=== PATIENT | male | born 1955 | race Caucasian/White ===

== ENCOUNTER 2021-04-26 11:34 | Inpatient (IN) ==
[2021-04-26] MEDS ORDERED: IOPAMIDOL 100 ML BOTTLE IV ONE (11:35)
--- NOTE | 2021-04-26 12:33 | Emergency Department Note ---
HPI <Amira Castañeda PA-C - Last Filed: 04/26/21 18:40> General Chief complaint: Cold/Flu Symptoms Stated complaint: cold symptoms Time Seen by Provider: 04/26/21 11:50 Source: other Mode of arrival: wheelchair Limitations: physical limitation History of Present Illness HPI Narrative: This a 65-year-old male who receives 24-hour care giving due to a remote traumatic brain injury who presents with at least 2 days of worsening productive cough and weakness. He now has a new oxygen requirement of 2 L. Sats dropped into the high 80s on room air. He is not on oxygen at home. He is not a smoker, and no history of asthma or COPD. Does have a history of a left lung resection. He is normally ambulatory at home but has increased needs for ADLs due to weakness. His caregiver is with him today and gives majority of his history. The patient is verbal but with limited communication. The caregiver notes not the patient has a rash to his back for the last 2 days. On exam it looks like a shingles rash. Unknown if the patient has been vaccinated for shingles. Related Data Home Medications Medication Instructions Recorded Confirmed tamsulosin 0.4 mg capsule 1 cap PO QDAY 04/26/21 04/26/21 Allergies Allergy/AdvReac Type Severity Reaction Status Date / Time Penicillins Allergy Unknown Rash Verified 04/26/21 20:25 Review of Systems <Amira Castañeda PA-C - Last Filed: 04/26/21 18:40> ROS ROS Narrative: Narrative: Limitations: ROS unobtainable due to patients medical condition [facility] <Amira Castañeda PA-C - Last Filed: 04/26/21 18:40> Narrative Patient History Narrative: Narrative: Medical/Surgical/Family History All Active Problems (Updated 04/26/21 @ 18:40 by Amira Castañeda PA-C) CAP (community acquired pneumonia) (Acute) Acute respiratory failure with hypoxia (Acute) Social History Smoking Status: Former smoker Exam <Amira Castañeda PA-C - Last Filed: 04/26/21 18:40> Narrative Narrative: General: Alert and oriented to self, mild distress, ill appearing. Pleasant and conversant. HEENT: PERRL, EOMI, normocephalic. Moist mucous membranes. Normal facies and normal dentition. Chest: Symmetric, no pain to palpation Respiratory: Lungs rhonchorous throughout with expiratory wheezes. Tachypneic to the 30s. Increased work of breathing. Heart: Regular rate and rhythm, no murmurs/clicks/rubs. Back: Shingles lesions noted near the T11-T12 dermatome x2 areas. Abdomen: Non-tender, Non distended, normal bowel tones. No organomegaly. Extremities: Warm and well perfused. No edema. DP 2+ bilaterally. No venous stasis. Neuro: No focal deficits. Cranial nerves II-XII grossly normal. Moves all fours to stimulus. Skin: Warm dry, no rashes or lesions, no cyanosis. Psych: Normal mood and affect Heme/Lymph: No abnormal bruising General Limitations: physical limitation Course <Amira Castañeda PA-C - Last Filed: 04/26/21 18:40> Course Course Narrative: 65-year-old male with traumatic brain injury and self-care deficits presents with increasing shortness of breath, cough, and weakness. Reevaluation(s) Reevaluation #1: Obtain basic labs, chest x-ray, Covid and influenza swabs Reevaluation #2: Covid and influenza swabs are negative Chest x-ray shows possible left lower lobe infiltrate consistent with a pneumonia Patient is tachypneic so will give DuoNeb treatment, 40 mg IV steroid x1 dose, and start empiric antibiotics for community-acquired pneumonia Give acyclovir for probable shingles outbreak Obtain VBG ---> 7.37, PCO2 is 53, venous PO2 is 39, bicarb is 30.6 Reevaluation #3: Given the patient's ongoing tachypnea and O2 requirements regardless of a normal white blood cell count I would still like to treat him empirically for community acquired pneumonia versus possible aspiration pneumonia and he will need ad mission. Awaiting hospitalist for signout. Additional Reevaluation(s): Hospitalist would like me to evaluate further with a CTA of the chest to rule o ut PE given his presentation and no elevation of his white blood cell count, also to better characterize his pneumonia. We also like you to repeat a VBG CT of the chest is negative for PE and shows a right lower lobe pneumonia. Repeat VBG with a CO2 of 48 and lactic acid 1.4. Vital Signs Vital signs: Vital Signs Temperature 99.2 F H 04/26/21 11:35 Temperature 98.9 F 04/27/21 04:00 Pulse Rate 73 04/27/21 07:06 Respiratory Rate 32 H 04/27/21 07:06 Blood Pressure 108/54 04/27/21 06:00 Pulse Oximetry (%) 91 04/27/21 07:06 [facility] <Amira Castañeda PA-C - Last Filed: 04/26/21 18:40> MDM Narrative Medical decision making narrative: Acute hypoxic respiratory failure Community-acquired pneumonia Shingles outbreak Patient meets criteria for admission. I have spoken the hospitalist who has accepted the patient. Lab Data Result diagrams: 04/27/21 05:38 04/27/21 05:38 Labs: Lab Results 04/26/21 04/26/21 04/26/21 Range/Units 13:40 13:40 13:40 WBC 7.3 (4.5-11.0) K/mcL RBC 4.92 (4.63-6.08) M/mcL Hgb 15.1 (13.7-17.5) g/dL Hct 50.0 (40.1-51.0) % MCV 101.6 H (80.0-100.0) fL MCH 30.7 (26.0-34.0) pg MCHC 30.2 L (31.0-36.0) g/dL RDW 13.0 (11.5-14.5) % Plt Count 177 (140-440) K/mcL MPV 10.2 (7.4-10.4) fL Seg Neutrophils % 60 (38-78) % Band Neutrophils % 1 (0-10) % Lymphocytes % 23 (15-49) % Monocytes % (Manual) 16 H (1-12) % Platelet Estimate Normal (Normal) RBC Morphology Normal (Normal) Sodium 138 (133-145) mmol/L Potassium 4.4 (3.3-5.1) mmol/L Chloride 101 (96-108) mmol/L Carbon Dioxide 27 (22-30) mmol/L Anion Gap 10.0 (8.0-16.0) BUN 16 (8-23) mg/dL Creatinine 1.1 (0.7-1.2) mg/dL GFR Calculation 70 Glucose 103 (70-105) mg/dL Calcium 8.4 L (8.6-10.4) mg/dL Total Bilirubin 0.4 (0.1-1.0) mg/dL AST 28 (<40) U/L ALT 17 (<40) U/L Alkaline Phosphatase 65 (39-117) U/L Total Protein 7.3 (5.9-8.4) gm/dL Albumin 3.8 (3.2-5.2) gm/dL Globulin 3.5 (2.2-3.7) gm/dL Albumin/Globulin Ratio 1.1 (1.0-2.3) Procalcitonin 0.10 H (<0.10) ng/mL ED POC Tests ED POC Tests: MAYI - Influenza A Negative MAYI - Influenza B Negative MAYI - SARS Antigen Negative Discharge Plan Patient/Caregiver Discharge Instructions Pt seen by [facility]ER/PA only: Yes Clinical Impression: CAP (community acquired pneumonia), Acute respiratory failure with hypoxia Patient Disposition: Xfer As Inpt ([facility]) Condition: Fair Discharge Date/Time: 04/26/21 19:35
[2021-04-26] MEDS ORDERED: methylPREDNISolone SOD SUCC 40 MG/ML VIAL IV ONE (12:50)
[2021-04-26] MEDS ORDERED: IPRATROPIUM/ALBUTEROL 3 ML AMPUL.NEB NEB ONE (12:50)
--- NOTE | 2021-04-26 13:12 | XRay Report ---
INDICATION: r/p PNa TECHNIQUE: AP portable semiupright chest x-ray COMPARISON: Previous examinations dated 04/03/2021, 02/23/2018, 03/26/2017 FINDINGS: Markedly elevated left hemidiaphragm is unchanged. Splenic flexure of the colon is just inferior to the left diaphragm There is parenchymal density at the left lung base. This may be benign volume loss but pneumonia is possible. This is essentially unchanged since 04/03/2021 but worse since 02/23/2018 There is interstitial abnormality in both upper lungs. Findings are most consistent with pulmonary congestion. There is right convex thoracic scoliosis, unchanged IMPRESSION: 1. Markedly elevated left hemidiaphragm, unchanged 2. Left basilar parenchymal density may be pneumonia or volume loss 3. Probable pulmonary congestion Interpreted and Authenticated by: Mars Cesar 04/26/21
[2021-04-26] MEDS ORDERED: cefTRIAXone 1 GM VIAL IV ONE (13:22)
[2021-04-26] MEDS ORDERED: AZITHROMYCIN 500 MG in DEXTROSE 5% IN WATER 250 ML IV ONE (13:24)
[2021-04-26 14:16] LABS: Hemoglobin 15.1 g/dL (13.7-17.5); Mean Cell Volume 101.6 fL (80.0-100.0); Mean Corpuscular HGB Conc 30.2 g/dL (31.0-36.0); Mean Platelet Volume 10.2 fL (7.4-10.4); Platelet Count 177 K/mcL (140-440); RBC 4.92 M/mcL (4.63-6.08); WBC 7.3 K/mcL (4.5-11.0)
[2021-04-26 14:36] LABS: ALT/SGPT 17 U/L (<40); AST/SGOT 28 U/L (<40); Albumin 3.8 gm/dL (3.2-5.2); Albumin/Globulin Ratio 1.1 (1.0-2.3); Alkaline Phosphatase 65 U/L (39-117); Bilirubin,Total 0.4 mg/dL (0.1-1.0); Blood Urea Nitrogen 16 mg/dL (8-23); Calcium 8.4 mg/dL (8.6-10.4); Carbon Dioxide 27 mmol/L (22-30); Chloride 101 mmol/L (96-108); Globulin 3.5 gm/dL (2.2-3.7); Glomerular Filtration Rate 70; Glucose 103 mg/dL (70-105)
[2021-04-26 15:07] LABS: Band Neutrophils % 1 % (0-10); Lymphocytes % 23 % (15-49); Monocytes % (Manual) 16 % (1-12); Platelet Estimate NORMAL (Normal); RBC Morphology NORMAL (Normal); Segmented Neutrophils % 60 % (38-78)
[2021-04-26] MEDS ORDERED: ACYCLOVIR 400 MG TABLET PO ONE (17:35)
--- NOTE | 2021-04-26 17:53 | Cat Scan Report ---
INDICATION: r/o PE COMPARISON: Previous chest x-rays dated 04/26/2021, 04/03/2021, 02/20/2021 TECHNIQUE: Axial images obtained through the chest. 60ml Isovue 370 injected intravenously, and scanning was performed during pulmonary arterial phase. Sagittally and coronally reformatted images were obtained. MIP reformatted images. FINDINGS: Poor quality examination due to inability to suspend respiration or hold still Lungs:There is marked elevation of the left hemidiaphragm. There are right lower lobe infiltrates consistent with pneumonia. There is mild left lower lobe infiltrate may represent volume loss or pneumonia. Mediastinum, vascular:Main pulmonary artery, right pulmonary artery, left pulmonary artery are negative. No intraluminal filling defects. No lobar, segmental, or subsegmental emboli. Thoracic aorta is negative. No aneurysmal dilatation No pathologic mediastinal or hilar adenopathy Heart:No cardiomegaly. No pericardial effusion. Pleura:No significant pleural effusion. No pleural mass or calcification Axilla, supraclavicular regions, chest wall:No pathologic axillary or supraclavicular adenopathy. Musculoskeletal:No thoracic compression fractures. There is exaggerated thoracic kyphosis. There is right convex thoracic scoliosis Upper Abdomen:Markedly elevated left hemidiaphragm. The gallbladder is distended. There are no calcified gallstones. There is moderate left hydronephrosis IMPRESSION: 1. Infiltrates consistent with right lower lobe pneumonia. Left lower lobe density consistent with volume loss or pneumonia 2. Negative CTA. No pulmonary embolism 3. Distended gallbladder 4. Moderate left hydronephrosis 5. Markedly elevated left hemidiaphragm The exam was performed using radiation dose optimization techniques including, but not limited to, automated exposure control, adjustment of the mA and/or kV according to patient size and use of iterative reconstruction technique. Interpreted and Authenticated by: Mars Cesar 04/26/21
--- NOTE | 2021-04-26 18:19 | Internal Med History&Physical ---
HPI History of Present Illness Patient information: Note initiated : 04/26/21 at 6:17 pm Service Date, if different from initiated Date: [] Patient: Alden Alcantar 65 y/o M admitted on for cold symptoms. Chief Complaint: [] Chief complaint: shortness of breath History of present illness: Mr. Alcantar is a 65 year old male with a history of traumatic brain injury who requires 24-hour caregiver support, prior left lung resection, probable BPH who presented to the emergency department for shortness of breath, wheezing and a cough. In the ED, the patient had a new oxygen requirement and was tachycardic. CBC did not show a leukocytosis, chemistry panel was fairly unremarkable, procalcitonin level was .10. Chest x-ray showed a left basilar parenchymal density that could be pneumonia versus volume loss. There was a markedly elevated left hemidiaphragm which was a chronic finding. The patient had a CTA chest that showed right lower lobe and probable left lower lobe opacities consistent with pneumonia. The CT scan showed an incidental finding of left hydronephrosis. There was no evidence of pulmonary embolism or other parenchymal abnormalities on the CT scan. Mayi combo rapid antigen was negative for SARS-CoV-2, influenza a and B. Patient was accompanied by a caregiver who stated that the patient's CODE STATUS is full code. The patient is unable to provide a clear history due to difficulty communicating verbally due to traumatic brain injury. Review of systems: Unable to obtain due to traumatic brain injury. Physical exam Head: Cranial scars from prior craniotomy. Eyes: normal appearance, no scleral icterus. Neck: full ROM Respiratory: respiratory rate in the mid 30s, frequent coughing. Cardiovascular: normal rate and rhythm, S1, S2. GI/Abdominal: soft, nontender, no guarding. Extremities: full range of motion, nontender. Psychiatric: normal mood. Skin: warm, normal color PFSH PFSH All Active Problems (Updated 04/26/21 @ 18:40 by Amira Castañeda PA-C) CAP (community acquired pneumonia) (Acute) Acute respiratory failure with hypoxia (Acute) MEDS/ALLERGIES Home Medications and Allergies Home Medications Medication Instructions Recorded Confirmed Type tamsulosin 0.4 mg capsule 1 cap PO QDAY 04/26/21 04/26/21 History Allergies Allergy/AdvReac Type Severity Reaction Status Date / Time Penicillins Allergy Mild Rash Verified 04/27/21 08:01 EXAM Constitutional Vitals: Temp Pulse Resp BP Pulse Ox 100.3 F H 84 32 H 117/70 92 04/26/21 17:44 04/26/21 17:18 04/26/21 17:18 04/26/21 16:31 04/26/21 17:18 DATA Data Completed and Pending Labs: Labs from last 24 hours 04/26/21 04/26/21 04/26/21 13:40 13:40 13:40 WBC 7.3 RBC 4.92 Hgb 15.1 Hct 50.0 MCV 101.6 H MCH 30.7 MCHC 30.2 L RDW 13.0 Plt Count 177 MPV 10.2 Seg Neutrophils % 60 Band Neutrophils % 1 Lymphocytes % 23 Monocytes % (Manual) 16 H Platelet Estimate Normal RBC Morphology Normal Sodium 138 Potassium 4.4 Chloride 101 Carbon Dioxide 27 Anion Gap 10.0 BUN 16 Creatinine 1.1 GFR Calculation 70 Glucose 103 Calcium 8.4 L Total Bilirubin 0.4 AST 28 ALT 17 Alkaline Phosphatase 65 Total Protein 7.3 Albumin 3.8 Globulin 3.5 Albumin/Globulin Ratio 1.1 Procalcitonin 0.10 H A/P Narrative A/P Narrative: Assessment: 65 year old male with a history of remote traumatic brain injury, left lung resection, who requires 24 hour caregiver support admitted for acute hypoxic respiratory failure and sepsis that appears to be secondary to pneumonia. The patient is probably at risk of aspiration. Procalcitonin was only mildly elevated, MAYI COMBO was negative. Lactic acid was 3.2. Hydronephrosis was incidentally noted on the CTA chest. #Acute hypoxic respiratory failure #Community acquired pneumonia #Sepsis secondary to pneumonia #Concern for aspiration #Left hydronephrosis, moderate #Possible herpes zoster #History of traumatic brain injury Plan -Ceftriaxone and Azithromycin for CAP. -Oxygen supplementation. -IV fluid for sepsis, follow lactic acid until downtrending. -Follow sputum and blood cultures. -Scheduled duo nebs and as needed albuterol nebs. -MRSA nasal PCR. -PANTHER PCR. -Urinalysis w/ reflex to culture. -Consider bilateral renal US vs CT KUB. -Bladder scan Qshift. -Acyclovir 800 mg PO 5XD x 7 days for herpes zoster. -Home medication reconciliation. -Speech consult. -PT consult. -NPO for now pending speech evaluation. -DVT prophylaxis: Lovenox -Code status: Full -Disposition: TBD Time Spent With Patient Time: Total time spent is greater than 50% in coordination of care (as documented) at patient's floor/unit and/or counseling patient:
[2021-04-26] MEDS ORDERED: ACETAMINOPHEN 325 MG TABLET PO ONE (18:22)
[2021-04-26] MEDS ORDERED: ALBUTEROL SULFATE 2.5 MG/3 ML NEBULIZER NEB PRN (19:39)
[2021-04-26] MEDS ORDERED: LACTULOSE 20 GM/30 ML ORAL.SOL PO PRN (19:48)
[2021-04-26] MEDS ORDERED: 0.9 % SODIUM CHLORIDE 1,000 ML IV ONE (19:48)
[2021-04-26] MEDS ORDERED: ACETAMINOPHEN 325 MG TABLET PO PRN (19:48)
[2021-04-26] MEDS ORDERED: ONDANSETRON 4 MG/2 ML VIAL IV PRN (19:48)
[2021-04-26] MEDS ORDERED: SENNOSIDES 1 TABLET PO PRN (19:48)
[2021-04-26] MEDS: DOCUSATE SODIUM 100 MG CAPSULE PO SCH (20:23)
[2021-04-26] MEDS: 0.9 % SODIUM CHLORIDE 10 ML SYRINGE IV SCH (20:24)
[2021-04-26] MEDS: 0.9 % SODIUM CHLORIDE 1,000 ML IV SCH (21:13)
[2021-04-26] MEDS: ACYCLOVIR 400 MG TABLET PO SCH (21:13)
[2021-04-26] MEDS: TAMSULOSIN 0.4 MG CAPSULE PO SCH (21:14)
[2021-04-26 21:52] LABS: ALT/SGPT 15 U/L (<40); AST/SGOT 19 U/L (<40); Albumin 3.6 gm/dL (3.2-5.2); Albumin/Globulin Ratio 1.2 (1.0-2.3); Alkaline Phosphatase 58 U/L (39-117); Bilirubin,Direct < 0.2 mg/dL (0-0.3); Bilirubin,Total 0.2 mg/dL (0.1-1.0); Blood Urea Nitrogen 17 mg/dL (8-23); Calcium 7.9 mg/dL (8.6-10.4); Carbon Dioxide 21 mmol/L (22-30); Chloride 103 mmol/L (96-108); Globulin 3.1 gm/dL (2.2-3.7); Glomerular Filtration Rate 79; Glucose 160 mg/dL (70-105); Lactate Dehydrogenase 206 U/L (135-225); Phosphorous 2.2 mg/dL (2.5-4.5); Triglycerides 37 mg/dL (<150); Uric Acid 4.4 mg/dL (2.5-8.0)
[2021-04-26 22:38] LABS: Appearance,Urine Clear (Clear); Bilirubin,Urine Negative (Negative); Color,Urine Yellow; Culture Indicated,Urine No; Glucose,Urine (UA) Negative (Negative); Ketones,Urine Negative (Negative); Leukocyte Esterase,Urine Negative /uL (Negative); Mucus,Urine MANY /hpf; Nitrate,Urine Negative (Negative); PH,Urine 5.5 (5.0-9.0); Specific Gravity,Urine 1.015 (1.000-1.035); Urine Blood Trace-intact ery/mcL (Negative); Urine RBC 1 /hpf (0-3); Urine Squamous Epithelial Cell 0 /hpf (0-4); Urine WBC < 1 /hpf (0-4); Urobilinogen,Urine Normal
[2021-04-27] MEDS: IPRATROPIUM/ALBUTEROL 3 ML AMPUL.NEB NEB SCH ×3 (00:46→13:19)
[2021-04-27] MEDS: 0.9 % SODIUM CHLORIDE 1,000 ML IV SCH ×4 (03:54→20:33)
[2021-04-27] MEDS: 0.9 % SODIUM CHLORIDE 10 ML SYRINGE IV SCH ×3 (04:47→22:20)
[2021-04-27 06:27] LABS: Basophils # (Auto) 0.02 K/mcL (0.00-0.30); Basophils % (Auto) 0.3 % (0.0-2.0); Eosinophils # (Auto) 0.16 K/mcL (0.00-0.70); Eosinophils % (Auto) 2.6 % (0.0-7.0); Hematocrit 44.5 % (40.1-51.0); Hemoglobin 14.1 g/dL (13.7-17.5); Lymphocytes # (Auto) 0.85 K/mcL (1.50-4.80); Lymphocytes % (Auto) 13.8 % (15.5-49.0); Mean Cell Volume 95.3 fL (80.0-100.0); Mean Corpuscular HGB Conc 31.7 g/dL (31.0-36.0); Mean Platelet Volume 10.3 fL (7.4-10.4); Monocytes % (Auto) 11.3 % (1.0-12.0); Platelet Count 168 K/mcL (140-440); RBC 4.67 M/mcL (4.63-6.08); Red Cell Distribution Width 12.6 % (11.5-14.5); WBC 6.2 K/mcL (4.5-11.0)
--- NOTE | 2021-04-27 09:40 | Cat Scan Report ---
INDICATION: Left hydronephrosis evaluate for ureteral stone. COMPARISON: Previous pulmonary CTA dated 04/26/2021 TECHNIQUE: Axial images were obtained through the abdomen and pelvis. Sagittally and coronally reformatted images. FINDINGS: Lung bases:Markedly elevated left hemidiaphragm. Right lower lobe infiltrates are unchanged and remain consistent with pneumonia. There is pulmonary parenchymal density at the left lung base which appears somewhat worse than on previous examination. This may be collapse although pneumonia is possible. Liver:Negative to the limits of noncontrast enhanced examination. Liver contour is smooth without evidence for cirrhosis Gallbladder, bilary:Gallbladder is distended and measures approximately 12 cm maximally. No calcified gallstones. No gallbladder wall thickening. Spleen:No splenomegaly Pancreas:No pancreatic mass. No peripancreatic abnormality Adrenal glands:Negative Kidneys,ureters,bladder:Negative right kidney. No hydronephrosis. No obstructing or nonobstructing calculi. No detectable mass. There is some contrast material within left renal collecting system. This is from prior chest CTA. Contrast within calyces appears somewhat effaced, probably secondary to prominent parapelvic cysts. This was felt to be more consistent with hydronephrosis on prior examination but prominent parapelvic cysts appear more likely. There are no obstructing or nonobstructing calculi Ureters are negative. No hydroureter. No ureteral calculus No bladder stone. No detectable bladder mass. Gastrointestinal:Prominent fecal material within the rectum. No detectable colonic mass. No diverticulitis Negative small bowel. No mechanical small bowel obstruction. No bowel wall thickening. No focal abnormality. Negative stomach and duodenum. No focal abnormality. Appendix: The appendix is nonvisualized. No evidence for appendicitis Vascular:There is calcification of the abdominal aorta. No abdominal aortic aneurysm Lymphatic:No retroperitoneal adenopathy. No significant mesenteric adenopathy. Mesentery, peritoneum:No free intraperitoneal fluid. No intra-abdominal abscess. No pneumoperitoneum Reproductive:Prostate is enlarged. Seminal vesicles are negative Musculoskeletal:No lumbar compression fractures. No lytic lesions. Sacrum, pelvis, hips are negative No anterior abdominal wall or inguinal hernia. IMPRESSION: 1. Findings more consistent with left parapelvic cysts than left hydronephrosis. No renal or ureteral calculi. 2. Distended gallbladder. No calcified stones. No bladder wall thickening 3. Prominent fecal material within the rectum 4. Enlarged appendix The exam was performed using radiation dose optimization techniques including, but not limited to, automated exposure control, adjustment of the mA and/or kV according to patient size and use of iterative reconstruction technique. Interpreted and Authenticated by: Mars Cesar 04/27/21
[2021-04-27] MEDS: ENOXAPARIN 40 MG/0.4 ML SYRINGE SQ SCH (09:43)
[2021-04-27] MEDS: DOCUSATE SODIUM 100 MG CAPSULE PO SCH ×2 (09:43→22:21)
[2021-04-27] MEDS: ACYCLOVIR 400 MG TABLET PO SCH ×4 (09:44→17:56)
[2021-04-27] MEDS: cefTRIAXone 1 GM VIAL IV SCH (10:01)
[2021-04-27 10:32] LABS: ALT/SGPT 12 U/L (<40); AST/SGOT 19 U/L (<40); Albumin 3.4 gm/dL (3.2-5.2); Albumin/Globulin Ratio 1.1 (1.0-2.3); Alkaline Phosphatase 54 U/L (39-117); Bilirubin,Direct < 0.2 mg/dL (0-0.3); Bilirubin,Total 0.3 mg/dL (0.1-1.0); Blood Urea Nitrogen 15 mg/dL (8-23); Calcium 7.9 mg/dL (8.6-10.4); Carbon Dioxide 23 mmol/L (22-30); Chloride 106 mmol/L (96-108); Globulin 3.2 gm/dL (2.2-3.7); Glomerular Filtration Rate 90; Glucose 112 mg/dL (70-105); Lactate Dehydrogenase 202 U/L (135-225); Phosphorous 2.3 mg/dL (2.5-4.5); Triglycerides 46 mg/dL (<150); Uric Acid 3.5 mg/dL (2.5-8.0)
[2021-04-27] MEDS: AZITHROMYCIN 500 MG in DEXTROSE 5% IN WATER 250 ML IV SCH (11:31)
[2021-04-27] MEDS ORDERED: RACEPINEPHRINE 0.5 ML AMPUL.NEB NEB ONE (14:39)
[2021-04-27] MEDS ORDERED: RACEPINEPHRINE 0.5 ML AMPUL.NEB NEB PRN (15:09)
[2021-04-27] MEDS ORDERED: FUROSEMIDE 20 MG/2 ML VIAL IV ONE ×2 (21:05→22:24)
[2021-04-27] MEDS ORDERED: 0.9 % SODIUM CHLORIDE 1,000 ML IV SCH (22:05)
[2021-04-27] MEDS: TAMSULOSIN 0.4 MG CAPSULE PO SCH (22:23)
[2021-04-27] MEDS ORDERED: IOPAMIDOL 100 ML BOTTLE IV ONE (22:43)
[2021-04-28] MEDS: IPRATROPIUM/ALBUTEROL 3 ML AMPUL.NEB NEB SCH ×5 (00:32→19:37)
[2021-04-28] MEDS: ACYCLOVIR 400 MG TABLET PO SCH ×4 (02:23→13:33)
--- NOTE | 2021-04-28 05:56 | XRay Report ---
INDICATION: increased respiratory rate TECHNIQUE: AP portable upright chest x-ray COMPARISON: Previous chest x-rays dated 04/26/2021, 04/03/2021. Previous chest CT scan dated 04/26/2021 FINDINGS:Examination was initially interpreted by [facility] Lungs:Chronic severe elevation left hemidiaphragm. There is prominent gas filled colon beneath the diaphragm. There is increasing left lung infiltrate consistent with pneumonia. Findings are worse than on previous chest x-ray. No focal right lung consolidation. Heart, vascular:No significant cardiomegaly. Pulmonary vascularity is normal. No pulmonary edema or pulmonary congestion Mediastinum, bj:Mediastinum and heart are shifted toward the right due to the elevated left hemidiaphragm. This is chronic Pleura:No definite pleural effusion Skeletal:No acute abnormality IMPRESSION: 1. Chronic severe elevation of left hemidiaphragm. 2. Left lung infiltrates are worse than on previous examination consistent with worsening pneumonia Interpreted and Authenticated by: Mars Cesar 04/28/21
--- NOTE | 2021-04-28 06:01 | Cat Scan Report ---
INDICATION: concern for upper airway stricture, hx of trach COMPARISON: Chest CT scan dated 04/26/2021 TECHNIQUE: Axial contrast enhanced images through the neck. Sagittally and coronally reformatted images. 80ml Isovue 370 injected intravenously. FINDINGS: Examination was initially interpreted by [facility] Present examination is limited. This patient has deformity with prominent tilting of the head toward the left. This patient is unable to suspend respiration. Vascular:Common carotid arteries and internal carotid arteries are patent bilaterally. Internal jugular veins are patent Lymphatic:No pathologic lymphadenopathy. Internal jugular chains are negative. No supraclavicular adenopathy Mucosa:No mucosal mass. Glottis and epiglottis are normal. Nasopharynx, oropharynx, hypopharynx are negative. No peritonsillar mass or evidence for abscess Salivary glands:Parotid glands and submandibular glands are negative bilaterally. No focal mass. No evidence for sialoadenitis. Soft Tissue:No solid or cystic soft tissue mass. No abscess. No focal abnormality Lung Apices:Increased left upper lobe consolidation consistent with worsening pneumonia Thyroid:Negative. No detectable nodule Paranasal sinuses:Air-fluid level in the right maxillary sinus consistent with acute sinusitis Musculoskeletal:Negative cervical spine. Previous right sided craniotomy IMPRESSION: 1. Increasing left upper lobe consolidation consistent with worsening pneumonia 2. Acute right maxillary sinusitis The exam was performed using radiation dose optimization techniques including, but not limited to, automated exposure control, adjustment of the mA and/or kV according to patient size and use of iterative reconstruction technique. Interpreted and Authenticated by: Mars Cesar 04/28/21
[2021-04-28] MEDS: 0.9 % SODIUM CHLORIDE 10 ML SYRINGE IV SCH ×3 (06:30→20:03)
[2021-04-28] MEDS ORDERED: IPRATROPIUM/ALBUTEROL 3 ML AMPUL.NEB NEB ONE (06:34)
[2021-04-28 06:53] LABS: Basophils # (Auto) 0.02 K/mcL (0.00-0.30); Basophils % (Auto) 0.2 % (0.0-2.0); Eosinophils # (Auto) 0 K/mcL (0.00-0.70); Eosinophils % (Auto) 0 % (0.0-7.0); Hematocrit 41.4 % (40.1-51.0); Hemoglobin 13.2 g/dL (13.7-17.5); Lymphocytes # (Auto) 1.85 K/mcL (1.50-4.80); Lymphocytes % (Auto) 21.2 % (15.5-49.0); Mean Cell Volume 95.2 fL (80.0-100.0); Mean Corpuscular HGB Conc 31.9 g/dL (31.0-36.0); Mean Platelet Volume 10.6 fL (7.4-10.4); Monocytes # (Auto) 0.75 K/mcL (0.10-0.90); Monocytes % (Auto) 8.6 % (1.0-12.0); Platelet Count 190 K/mcL (140-440); RBC 4.35 M/mcL (4.63-6.08); Red Cell Distribution Width 12.9 % (11.5-14.5); WBC 8.7 K/mcL (4.5-11.0)
[2021-04-28 07:14] LABS: ALT/SGPT 13 U/L (<40); AST/SGOT 22 U/L (<40); Albumin 3.1 gm/dL (3.2-5.2); Alkaline Phosphatase 51 U/L (39-117); Bilirubin,Direct < 0.2 mg/dL (0-0.3); Bilirubin,Total 0.2 mg/dL (0.1-1.0); Blood Urea Nitrogen 17 mg/dL (8-23); Calcium 7.7 mg/dL (8.6-10.4); Carbon Dioxide 23 mmol/L (22-30); Chloride 103 mmol/L (96-108); Glomerular Filtration Rate 79; Glucose 88 mg/dL (70-105); Lactate Dehydrogenase 250 U/L (135-225); Phosphorous 2.5 mg/dL (2.5-4.5); Triglycerides 52 mg/dL (<150); Uric Acid 3.7 mg/dL (2.5-8.0)
[2021-04-28] MEDS: DOCUSATE SODIUM 100 MG CAPSULE PO SCH ×2 (09:28→20:02)
[2021-04-28] MEDS: ENOXAPARIN 40 MG/0.4 ML SYRINGE SQ SCH (09:28)
[2021-04-28] MEDS ORDERED: FLU VACC QS2021-22(6MOS UP)/PF 60 MCG/0.5 ML SYRINGE IM ONE (10:00)
[2021-04-28] MEDS ORDERED: PNEUMOCOCCAL 23-VAL P-SAC VAC 0.5 ML SYRINGE IM ONE (10:00)
[2021-04-28] MEDS: cefTRIAXone 1 GM VIAL IV SCH (10:50)
[2021-04-28] MEDS: AZITHROMYCIN 500 MG in DEXTROSE 5% IN WATER 250 ML IV SCH (11:19)
[2021-04-28] MEDS: LEVOFLOXACIN 750 MG/150 ML BAG IV SCH (12:38)
[2021-04-28] MEDS: ACETYLCYSTEINE 800 MG/4 ML VIAL NEB SCH ×3 (14:01→19:38)
--- NOTE | 2021-04-28 15:44 | Internal Med Progress Note ---
SUBJECTIVE Subjective Patient information: Note initiated : 04/28/21 at 3:42 pm Service Date, if different from initiated Date: [] Patient: Alden Alcantar 65 y/o M admitted on 04/26/21 for cold symptoms. Chief Complaint: [] Principal diagnosis: Acute hypoxic respiratory failure Interval history: Mr. Alcantar is a 65 year old male with a history of traumatic brain injury who requires 24-hour caregiver support, prior left lung resection, probable BPH who presented to the emergency department for shortness of breath, wheezing and a cough. In the ED, the patient had a new oxygen requirement and was tachycardic. CBC did not show a leukocytosis, chemistry panel was fairly unremarkable, procalcitonin level was .10. Chest x-ray showed a left basilar parenchymal density that could be pneumonia versus volume loss. There was a markedly elevated left hemidiaphragm which was a chronic finding. The patient had a CTA chest that showed right lower lobe and probable left lower lobe opacities consistent with pneumonia. The CT scan showed an incidental finding of left hydronephrosis. There was no evidence of pulmonary embolism or other parenchymal abnormalities on the CT scan. Mayi combo rapid antigen was negative for SARS-CoV-2, influenza a and B. Patient was accompanied by a caregiver who stated that the patient's CODE STATUS is full code. The patient is unable to provide a clear history due to difficulty communicating verbally due to traumatic brain injury. 04/28 Increased respiratory rate and accessory muscle use, sounds like the patient has stridor. CT neck ordered to evaluate for upper airway stricture-negative for stricture, repeat chest xray showed an interval increase in left lung infiltrates. The patient appears to have a rash on his abdomen today, switched antibiotics from Ceftriaxone and Azithromycin to Levofloxacin IV. MRSA nasal PCR negative. Procalcitonin mildly elevated. PANTHER PCR negative. No sputum sample obtained yet. Ordered Respiratory panel 1&2. Continues to have diffuse wheezi ng-started Solumedrol and continued bronchodilators. Concern for possible aspiration-made the patient NPO pending speech evaluation. Started chest physiotherapy and suctioning. ABG showed pH 7.41, pCO2 43, pO2 60 on 5L/min nasal canula oxygen. Physical exam Head: Cranial scars from prior craniotomy. Eyes: normal appearance, no scleral icterus. Neck: full ROM Respiratory: prior tracheostomy, increased respiratory rate, accessory muscle use, wheezing, frequent coughing. Cardiovascular: normal rate and rhythm, S1, S2. GI/Abdominal: soft, nontender, no guarding. Extremities: full range of motion, nontender. Psychiatric: normal mood. Skin: warm, normal color Constitutional Vitals: Vital Signs Temp Pulse Resp BP Pulse Ox 98.7 F 92 H 29 H 123/69 95 04/28/21 12:00 04/28/21 14:01 04/28/21 14:01 04/28/21 12:00 04/28/21 14:01 Period Temp Pulse Resp BP Sys/Joyce Pulse Ox Last 24 Hr 97.4 F-99.2 F 71-105 26-46 107-159/52-88 90-97 Intake and Output 04/28/21 04/28/21 04/28/21 05:59 13:59 21:59 Intake Total 490 150 Output Total 1054 100 450 Balance -1054 390 -300 Intake & Output: Intake & Output 04/28/21 04/28/21 04/28/21 05:59 13:59 21:59 Intake Total 490 150 Output Total 1054 100 450 Balance -1054 390 -300 Intake: IV 250 150 Zithromax 500 mg In Dextrose 5% 250 in Water 250 ml @ 250 mls/hr IV Q24H [facility] Rx#:[id number] Oral 240 Output: Urine Catheter Amount 150 Void Amount 900 100 450 # of times incontinent of urine 4 Other: Meal Breakfast Percent of Meal Consumed 100% Feeding Ability Total Assistance Urine Appearance Clear Clear Clear Urine Color Pale Dark Yellow Dark Yellow Urine Odor Normal OBJ DATA Labs CBC & Chem 7: 04/28/21 05:25 04/28/21 05:25 Labs: Abnormal Lab Results 04/28/21 04/28/21 04/28/21 05:25 05:25 05:25 RBC 4.35 L Hgb 13.2 L MCV MCHC MPV 10.6 H Lymph % (Auto) Lymph # (Auto) Monocytes % (Manual) Carbon Dioxide Glucose Calcium 7.7 L Phosphorus Lactate Dehydrogenase 250 H Albumin 3.1 L Procalcitonin 0.14 H Urine Protein Urine Occult Blood Urine Mucus 04/27/21 04/27/21 04/26/21 09:22 05:38 21:51 RBC Hgb MCV MCHC MPV Lymph % (Auto) 13.8 L Lymph # (Auto) 0.85 L Monocytes % (Manual) Carbon Dioxide Glucose 112 H Calcium 7.9 L Phosphorus 2.3 L Lactate Dehydrogenase Albumin Procalcitonin Urine Protein 100 mg/dl A Urine Occult Blood Trace-intact A Urine Mucus Many A 04/26/21 04/26/21 04/26/21 20:49 13:40 13:40 RBC Hgb MCV MCHC MPV Lymph % (Auto) Lymph # (Auto) Monocytes % (Manual) Carbon Dioxide 21 L Glucose 160 H Calcium 7.9 L 8.4 L Phosphorus 2.2 L Lactate Dehydrogenase Albumin Procalcitonin 0.10 H Urine Protein Urine Occult Blood Urine Mucus 04/26/21 13:40 RBC Hgb MCV 101.6 H MCHC 30.2 L MPV Lymph % (Auto) Lymph # (Auto) Monocytes % (Manual) 16 H Carbon Dioxide Glucose Calcium Phosphorus Lactate Dehydrogenase Albumin Procalcitonin Urine Protein Urine Occult Blood Urine Mucus Meds: Medications Acetaminophen (Acetaminophen 325 Mg Tablet) 650 mg PO Q6HP PRN; Protocol PRN Reason: Per Pain Protocol/Fever > 101 Acetylcysteine (Acetylcysteine 800 Mg/4 Ml Vial) 600 mg NEB QID [facility] Last Admin: 04/28/21 14:01 Dose: 600 mg Documented by: Acyclovir (Acyclovir 400 Mg Tablet) 800 mg PO 5XD [facility]; Protocol Stop: 05/03/21 19:59 Last Admin: 04/28/21 13:33 Dose: Not Given Documented by: Albuterol Sulfate (Albuterol Sulfate 2.5 Mg/3 Ml Nebulizer) 2.5 mg NEB Q2HP PRN PRN Reason: Shortness Of Breath Last Admin: 04/27/21 22:25 Dose: 2.5 mg Documented by: Albuterol/Ipratropium (Ipratropium/Albuterol 3 Ml Ampul.Neb) 3 ml NEB Q6HRT [facility] Last Admin: 04/28/21 13:15 Dose: 3 ml Documented by: Benzonatate (Benzonatate 100 Mg Capsule) 200 mg PO TIDP PRN PRN Reason: Cough Docusate Sodium (Docusate Sodium 100 Mg Capsule) 100 mg PO BID [facility] Last Admin: 04/28/21 09:28 Dose: 100 mg Documented by: Enoxaparin Sodium (Enoxaparin 40 Mg/0.4 Ml Syringe) 40 mg SQ DAILY [facility] Last Admin: 04/28/21 09:28 Dose: 40 mg Documented by: Epinephrine (Racepinephrine 0.5 Ml Ampul.Neb) 0.5 ml NEB Q6HP PRN PRN Reason: stridor Last Admin: 04/27/21 19:39 Dose: 0.5 ml Documented by: Azithromycin 500 mg/ Dextrose 250 mls @ 250 mls/hr IV Q24H [facility]; Protocol Stop: 04/29/21 09:59 Last Infusion: 04/28/21 12:39 Dose: Infused Documented by: Levofloxacin (Levaquin) 750 mg in 150 mls @ 100 mls/hr IV Q24H [facility] Last Infusion: 04/28/21 14:17 Dose: Infused Documented by: Lactulose (Lactulose 20 Gm/30 Ml Oral.Nilam) 10 gm PO DAILYP PRN PRN Reason: Constipation Methylprednisolone Sodium Succinate (Methylprednisolone Sod Succ 40 Mg/Ml Vial) 40 mg IV Q12 [facility] Ondansetron HCl (Ondansetron 4 Mg/2 Ml Vial) 4 mg IV Q4HP PRN; Protocol PRN Reason: Nausea And Vomiting Senna (Sennosides 1 Tablet) 2 tab PO HSP PRN PRN Reason: Constipation Sodium Chloride (0.9 % Sodium Chloride 10 Ml Syringe) 10 ml IV Q8 [facility] Last Admin: 04/28/21 14:10 Dose: 10 ml Documented by: Tamsulosin HCl (Tamsulosin 0.4 Mg Capsule) 0.4 mg PO HS [facility] Last Admin: 04/27/21 22:23 Dose: Not Given Documented by: A/P Narrative A/P Narrative: Assessment: 65 year old male with a history of remote traumatic brain injury, left lung resection, who requires 24 hour caregiver support admitted for acute hypoxic respiratory failure and sepsis that appears to be secondary to pneumonia however presenting atypically with normal WBC and low procalcitonin. The patient is at risk of aspiration. Procalcitonin was only mildly elevated, MAYI COMBO was negative. PANTHER negative. Initial lactic acid was 3.2, improved to.7 with IV fluid. #Acute hypoxic respiratory failure #Possible community acquired pneumonia vs viral pneumonia vs pneumonitis #Concern for aspiration #Possible herpes zoster #History of traumatic brain injury #Chronic left diaphragm elevation Plan -Levofloxacin IV for possible CAP. -Oxygen supplementation. -Chest physiotherapy, frequent suctioning. -Follow sputum culture, respiratory panel. -Solumedrol IV BID. -Scheduled duo nebs and as needed albuterol nebs. -Mucomyst nebs QID for now. -Monitor respiratory status closely. -Acyclovir 800 mg PO 5XD x 7 days for herpes zoster. -Continue home Flomax. -Speech consult. -PT consult. -NPO for now pending speech evaluation. -DVT prophylaxis: Lovenox -Code status: Full -Disposition: TBD Time Spent With Patient Time: Total time spent is greater than 50% in coordination of care (as documented) at patient's floor/unit and/or counseling patient: QUALITY VTE Deep Vein Thrombosis/Pulmonary Embolism Present on Admission: No
[2021-04-28] MEDS: BENZONATATE 100 MG CAPSULE PO PRN (16:09)
[2021-04-28] MEDS ORDERED: ACYCLOVIR SODIUM 500 MG VIAL IV SCH ×2 (16:45→21:00)
[2021-04-28] MEDS: SODIUM CHLORIDE 0.9% IV SCH (18:03)
[2021-04-28] MEDS: ACYCLOVIR SODIUM IV SCH (18:03)
[2021-04-28] MEDS: methylPREDNISolone SOD SUCC 40 MG/ML VIAL IV SCH (20:02)
[2021-04-28] MEDS: TAMSULOSIN 0.4 MG CAPSULE PO SCH (20:02)
[2021-04-29] MEDS: ACETYLCYSTEINE 800 MG/4 ML VIAL NEB SCH ×4 (01:25→19:48)
[2021-04-29] MEDS: IPRATROPIUM/ALBUTEROL 3 ML AMPUL.NEB NEB SCH ×4 (01:25→19:48)
[2021-04-29] MEDS: SODIUM CHLORIDE 0.9% IV SCH ×2 (01:39→07:44)
[2021-04-29] MEDS: ACYCLOVIR SODIUM IV SCH ×2 (01:39→07:44)
[2021-04-29 07:16] LABS: Basophils # (Auto) 0 K/mcL (0.00-0.30); Basophils % (Auto) 0 % (0.0-2.0); Eosinophils # (Auto) 0 K/mcL (0.00-0.70); Eosinophils % (Auto) 0 % (0.0-7.0); Hematocrit 41.2 % (40.1-51.0); Hemoglobin 13.6 g/dL (13.7-17.5); Lymphocytes # (Auto) 0.47 K/mcL (1.50-4.80); Lymphocytes % (Auto) 8.2 % (15.5-49.0); Mean Cell Volume 92.8 fL (80.0-100.0); Mean Platelet Volume 10.7 fL (7.4-10.4); Monocytes # (Auto) 0.14 K/mcL (0.10-0.90); Monocytes % (Auto) 2.4 % (1.0-12.0); Neutrophils % (Auto) 89.4 % (38.0-78.0); Platelet Count 187 K/mcL (140-440); RBC 4.44 M/mcL (4.63-6.08); Red Cell Distribution Width 12.4 % (11.5-14.5); WBC 5.7 K/mcL (4.5-11.0)
[2021-04-29] MEDS: 0.9 % SODIUM CHLORIDE 10 ML SYRINGE IV SCH ×3 (07:45→22:49)
[2021-04-29] MEDS: DOCUSATE SODIUM 100 MG CAPSULE PO SCH ×2 (08:59→19:55)
[2021-04-29] MEDS ORDERED: TAMSULOSIN 0.4 MG CAPSULE PO SCH (09:00)
[2021-04-29] MEDS: methylPREDNISolone SOD SUCC 40 MG/ML VIAL IV SCH ×2 (09:03→22:48)
[2021-04-29] MEDS: ENOXAPARIN 40 MG/0.4 ML SYRINGE SQ SCH (09:03)
[2021-04-29] MEDS: LEVOFLOXACIN 750 MG/150 ML BAG IV SCH (10:54)
--- NOTE | 2021-04-29 11:42 | Internal Med Progress Note ---
SUBJECTIVE Subjective Patient information: Note initiated : 04/29/21 at 11:40 am Service Date, if different from initiated Date: [] Patient: Alden Alcantar 65 y/o M admitted on 04/26/21 for cold symptoms. Chief Complaint: [] Principal diagnosis: Acute hypoxic respiratory failure Interval history: Mr. Alcantar is a 65 year old male with a history of traumatic brain injury who requires 24-hour caregiver support, prior left lung resection, probable BPH who presented to the emergency department for shortness of breath, wheezing and a cough. In the ED, the patient had a new oxygen requirement and was tachycardic. CBC did not show a leukocytosis, chemistry panel was fairly unremarkable, procalcitonin level was .10. Chest x-ray showed a left basilar parenchymal density that could be pneumonia versus volume loss. There was a markedly elevated left hemidiaphragm which was a chronic finding. The patient had a CTA chest that showed right lower lobe and probable left lower lobe opacities consistent with pneumonia. The CT scan showed an incidental finding of left hydronephrosis. There was no evidence of pulmonary embolism or other parenchymal abnormalities on the CT scan. Mayi combo rapid antigen was negative for SARS-CoV-2, influenza a and B. Patient was accompanied by a caregiver who stated that the patient's CODE STATUS is full code. The patient is unable to provide a clear history due to difficulty communicating verbally due to traumatic brain injury. 04/28 Increased respiratory rate and accessory muscle use, sounds like the patient has stridor. CT neck ordered to evaluate for upper airway stricture-negative for stricture, repeat chest xray showed an interval increase in left lung infiltrates. The patient appears to have a rash on his abdomen today, switched antibiotics from Ceftriaxone and Azithromycin to Levofloxacin IV. MRSA nasal PCR negative. Procalcitonin mildly elevated. PANTHER PCR negative. No sputum sample obtained yet. Ordered Respiratory panel 1&2. Continues to have diffuse wheez ing-started Solumedrol and continued bronchodilators. Concern for possible aspiration-made the patient NPO pending speech evaluation. Started chest physiotherapy and suctioning. ABG showed pH 7.41, pCO2 43, pO2 60 on 5L/min nasal canula oxygen. 04/29 Respiratory panel positive for human metapneumovirus, suspect this is the a contributing cause of the patient's respiratory illness. Continue empiric levofloxacin for 5 days. On 8 L/min nasal cannula oxygen however appears to be breathing more comfortably today. Physical exam Head: Cranial scars from prior craniotomy. Eyes: normal appearance, no scleral icterus. Neck: full ROM Respiratory: prior tracheostomy, increased respiratory rate, accessory muscle use, wheezing, frequent coughing. Cardiovascular: normal rate and rhythm, S1, S2. GI/Abdominal: soft, nontender, no guarding. Extremities: full range of motion, nontender. Psychiatric: normal mood. Skin: warm, normal color Constitutional Vitals: Vital Signs Temp Pulse Resp BP Pulse Ox 98.1 F 75 27 H 143/86 91 04/29/21 08:01 04/29/21 10:04 04/29/21 10:04 04/29/21 10:02 04/29/21 10:04 Period Temp Pulse Resp BP Sys/Joyce Pulse Ox Last 24 Hr 98.1 F-98.7 F 70-93 24-44 92-143/59-86 89-98 Intake and Output 04/28/21 04/29/21 04/29/21 21:59 05:59 13:59 Intake Total 400 250 250 Output Total 525 527 150 Balance -125 -277 100 Weight 92.125 kg Intake & Output: Intake & Output 04/28/21 04/29/21 04/29/21 21:59 05:59 13:59 Intake Total 400 250 250 Output Total 525 527 150 Balance -125 -277 100 Weight 92.125 kg Intake: IV 400 250 250 Zovirax 940 mg In Sodium 250 250 250 Chloride 0.9% 250 ml @ 250 mls/ hr IV Q8H [facility] Rx#:[id number] Oral 0 Output: Void Amount 525 525 150 # of times incontinent of urine 2 Other: Urine Appearance Clear Clear Clear Urine Color Dark Yellow Bright Yellow Bright Yellow Urine Odor Normal Normal Normal OBJ DATA Labs CBC & Chem 7: 04/29/21 05:53 04/28/21 05:25 Labs: Abnormal Lab Results 04/29/21 04/28/21 04/28/21 05:53 05:25 05:25 RBC 4.44 L Hgb 13.6 L MCV MCHC MPV 10.7 H Neut % (Auto) 89.4 H Lymph % (Auto) 8.2 L Lymph # (Auto) 0.47 L Monocytes % (Manual) Carbon Dioxide Glucose Calcium 7.7 L Phosphorus Lactate Dehydrogenase 250 H Albumin 3.1 L Procalcitonin 0.14 H Urine Protein Urine Occult Blood Urine Mucus 04/28/21 04/27/21 04/27/21 05:25 09:22 05:38 RBC 4.35 L Hgb 13.2 L MCV MCHC MPV 10.6 H Neut % (Auto) Lymph % (Auto) 13.8 L Lymph # (Auto) 0.85 L Monocytes % (Manual) Carbon Dioxide Glucose 112 H Calcium 7.9 L Phosphorus 2.3 L Lactate Dehydrogenase Albumin Procalcitonin Urine Protein Urine Occult Blood Urine Mucus 04/26/21 04/26/21 04/26/21 21:51 20:49 13:40 RBC Hgb MCV MCHC MPV Neut % (Auto) Lymph % (Auto) Lymph # (Auto) Monocytes % (Manual) Carbon Dioxide 21 L Glucose 160 H Calcium 7.9 L Phosphorus 2.2 L Lactate Dehydrogenase Albumin Procalcitonin 0.10 H Urine Protein 100 mg/dl A Urine Occult Blood Trace-intact A Urine Mucus Many A 04/26/21 04/26/21 13:40 13:40 RBC Hgb MCV 101.6 H MCHC 30.2 L MPV Neut % (Auto) Lymph % (Auto) Lymph # (Auto) Monocytes % (Manual) 16 H Carbon Dioxide Glucose Calcium 8.4 L Phosphorus Lactate Dehydrogenase Albumin Procalcitonin Urine Protein Urine Occult Blood Urine Mucus Meds: Medications Acetaminophen (Acetaminophen 325 Mg Tablet) 650 mg PO Q6HP PRN; Protocol PRN Reason: Per Pain Protocol/Fever > 101 Acetylcysteine (Acetylcysteine 800 Mg/4 Ml Vial) 600 mg NEB Q6 [facility] Last Admin: 04/29/21 07:16 Dose: 600 mg Documented by: Albuterol Sulfate (Albuterol Sulfate 2.5 Mg/3 Ml Nebulizer) 2.5 mg NEB Q2HP PRN PRN Reason: Shortness Of Breath Last Admin: 04/27/21 22:25 Dose: 2.5 mg Documented by: Albuterol/Ipratropium (Ipratropium/Albuterol 3 Ml Ampul.Neb) 3 ml NEB Q6HRT [facility] Last Admin: 04/29/21 07:16 Dose: 3 ml Documented by: Benzonatate (Benzonatate 100 Mg Capsule) 200 mg PO TIDP PRN PRN Reason: Cough Last Admin: 04/28/21 16:09 Dose: 200 mg Documented by: Docusate Sodium (Docusate Sodium 100 Mg Capsule) 100 mg PO BID [facility] Last Admin: 04/29/21 08:59 Dose: Not Given Documented by: Enoxaparin Sodium (Enoxaparin 40 Mg/0.4 Ml Syringe) 40 mg SQ DAILY [facility] Last Admin: 04/29/21 09:03 Dose: 40 mg Documented by: Epinephrine (Racepinephrine 0.5 Ml Ampul.Neb) 0.5 ml NEB Q6HP PRN PRN Reason: stridor Last Admin: 04/27/21 19:39 Dose: 0.5 ml Documented by: Levofloxacin (Levaquin) 750 mg in 150 mls @ 100 mls/hr IV Q24H [facility] Last Admin: 04/29/21 10:54 Dose: 100 mls/hr Documented by: Acyclovir Sodium 940 mg/ (Sodium Chloride) 250 mls @ 250 mls/hr IV Q8H [facility] Last Infusion: 04/29/21 09:31 Dose: Infused Documented by: Lactulose (Lactulose 20 Gm/30 Ml Oral.Nilam) 10 gm PO DAILYP PRN PRN Reason: Constipation Methylprednisolone Sodium Succinate (Methylprednisolone Sod Succ 40 Mg/Ml Vial) 40 mg IV Q12 [facility] Last Admin: 04/29/21 09:03 Dose: 40 mg Documented by: Ondansetron HCl (Ondansetron 4 Mg/2 Ml Vial) 4 mg IV Q4HP PRN; Protocol PRN Reason: Nausea And Vomiting Senna (Sennosides 1 Tablet) 2 tab PO HSP PRN PRN Reason: Constipation Sodium Chloride (0.9 % Sodium Chloride 10 Ml Syringe) 10 ml IV Q8 [facility] Last Admin: 04/29/21 07:45 Dose: 10 ml Documented by: Tamsulosin HCl (Tamsulosin 0.4 Mg Capsule) 0.4 mg PO HS [facility] Last Admin: 04/28/21 20:02 Dose: Not Given Documented by: A/P Narrative A/P Narrative: Assessment: 65 year old male with a history of remote traumatic brain injury, left lung resection, who requires 24 hour caregiver support admitted for acute hypoxic respiratory failure and sepsis that appears to be secondary to pneumonia however presenting atypically with normal WBC and low procalcitonin. The patient is at risk of aspiration. Procalcitonin was only mildly elevated, MAYI COMBO was negative. PANTHER negative. Initial lactic acid was 3.2, improved to.7 with IV fluid. Respiratory panel positive for Human Metapneumovirus. #Acute hypoxic respiratory failure #Human Metapneumovirus infection #Possible community acquired pneumonia #Concern for aspiration #Possible herpes zoster #History of traumatic brain injury #Chronic left diaphragm elevation Plan -Levofloxacin IV x5 days for possible CAP. -Oxygen supplementation. -Chest physiotherapy, frequent suctioning. -Follow sputum culture, respiratory panel. -Solumedrol IV BID. -Scheduled duo nebs and as needed albuterol nebs. -Mucomyst nebs QID for now. -Monitor respiratory status closely. -Acyclovir 800 mg PO 5XD x 7 days for herpes zoster. -Continue home Flomax. -Speech consult. -PT consult. -Diet per speech. -DVT prophylaxis: Lovenox -Code status: Full -Disposition: TBD Time Spent With Patient Time: Total time spent is greater than 50% in coordination of care (as documented) at patient's floor/unit and/or counseling patient: QUALITY VTE Deep Vein Thrombosis/Pulmonary Embolism Present on Admission: No
[2021-04-29 13:42] LABS: ALT/SGPT 13 U/L (<40); AST/SGOT 18 U/L (<40); Albumin 3.5 gm/dL (3.2-5.2); Albumin/Globulin Ratio 1.1 (1.0-2.3); Alkaline Phosphatase 52 U/L (39-117); Bilirubin,Direct < 0.2 mg/dL (0-0.3); Bilirubin,Total 0.3 mg/dL (0.1-1.0); Blood Urea Nitrogen 13 mg/dL (8-23); Calcium 8.2 mg/dL (8.6-10.4); Carbon Dioxide 26 mmol/L (22-30); Chloride 102 mmol/L (96-108); Globulin 3.2 gm/dL (2.2-3.7); Glomerular Filtration Rate 90; Glucose 156 mg/dL (70-105); Lactate Dehydrogenase 204 U/L (135-225); Phosphorous 1.6 mg/dL (2.5-4.5); Triglycerides 56 mg/dL (<150); Uric Acid 3.6 mg/dL (2.5-8.0)
[2021-04-29] MEDS: ACYCLOVIR 400 MG TABLET PO SCH ×3 (14:22→19:55)
[2021-04-29] MEDS ORDERED: POTASSIUM PHOSPHATE 20 MEQ in DEXTROSE 5% IN WATER 250 ML IV ONE (16:06)
[2021-04-29] MEDS: TAMSULOSIN 0.4 MG CAPSULE PO SCH (19:55)
[2021-04-30] MEDS: ACETYLCYSTEINE 800 MG/4 ML VIAL NEB SCH ×4 (00:22→19:36)
[2021-04-30] MEDS: IPRATROPIUM/ALBUTEROL 3 ML AMPUL.NEB NEB SCH ×4 (00:23→19:36)
[2021-04-30] MEDS: 0.9 % SODIUM CHLORIDE 10 ML SYRINGE IV SCH ×3 (05:41→20:48)
[2021-04-30 07:13] LABS: Basophils # (Auto) 0.01 K/mcL (0.00-0.30); Basophils % (Auto) 0.1 % (0.0-2.0); Eosinophils # (Auto) 0 K/mcL (0.00-0.70); Eosinophils % (Auto) 0 % (0.0-7.0); Hematocrit 38.4 % (40.1-51.0); Hemoglobin 12.6 g/dL (13.7-17.5); Lymphocytes # (Auto) 0.57 K/mcL (1.50-4.80); Lymphocytes % (Auto) 5.4 % (15.5-49.0); Mean Cell Volume 91.6 fL (80.0-100.0); Mean Corpuscular HGB Conc 32.8 g/dL (31.0-36.0); Mean Platelet Volume 10.4 fL (7.4-10.4); Monocytes # (Auto) 0.24 K/mcL (0.10-0.90); Monocytes % (Auto) 2.3 % (1.0-12.0); Neutrophils % (Auto) 92.2 % (38.0-78.0); Platelet Count 210 K/mcL (140-440); RBC 4.19 M/mcL (4.63-6.08); Red Cell Distribution Width 12.3 % (11.5-14.5); WBC 10.5 K/mcL (4.5-11.0)
[2021-04-30 07:32] LABS: ALT/SGPT 11 U/L (<40); AST/SGOT 14 U/L (<40); Albumin 3.1 gm/dL (3.2-5.2); Alkaline Phosphatase 50 U/L (39-117); Bilirubin,Total 0.2 mg/dL (0.1-1.0); Blood Urea Nitrogen 17 mg/dL (8-23); Calcium 8.1 mg/dL (8.6-10.4); Carbon Dioxide 25 mmol/L (22-30); Chloride 103 mmol/L (96-108); Globulin 3.1 gm/dL (2.2-3.7); Glomerular Filtration Rate 94; Glucose 148 mg/dL (70-105)
[2021-04-30] MEDS: methylPREDNISolone SOD SUCC 40 MG/ML VIAL IV SCH ×2 (09:05→20:48)
[2021-04-30] MEDS: ENOXAPARIN 40 MG/0.4 ML SYRINGE SQ SCH (09:06)
[2021-04-30] MEDS: DOCUSATE SODIUM 100 MG CAPSULE PO SCH ×2 (09:06→20:48)
[2021-04-30] MEDS: ACYCLOVIR 400 MG TABLET PO SCH (09:06)
--- NOTE | 2021-04-30 09:27 | Internal Med Progress Note ---
SUBJECTIVE Subjective Patient information: Note initiated : 04/30/21 at 9:20 am Service Date, if different from initiated Date: [] Patient: Alden Alcantar 65 y/o M admitted on 04/26/21 for cold symptoms. Chief Complaint: Acute hypoxic respiratory failure Principal diagnosis: Acute hypoxic respiratory failure Interval history: Mr. Alcantar is a 65 year old male with a history of traumatic brain injury who requires 24-hour caregiver support, prior left lung resection, probable BPH who presented to the emergency department for shortness of breath, wheezing and a cough. In the ED, the patient had a new oxygen requirement and was tachycardic. CBC did not show a leukocytosis, chemistry panel was fairly unremarkable, procalcitonin level was .10. Chest x-ray showed a left basilar parenchymal density that could be pneumonia versus volume loss. There was a markedly elevated left hemidiaphragm which was a chronic finding. The patient had a CTA chest that showed right lower lobe and probable left lower lobe opacities consistent with pneumonia. The CT scan showed an incidental finding of left hydronephrosis. There was no evidence of pulmonary embolism or other parenchymal abnormalities on the CT scan. Aretha combo rapid antigen was negative for SARS-CoV-2, influenza a and B. Patient was accompanied by a caregiver who stated that the patient's CODE STATUS is full code. The patient is unable to provide a clear history due to difficulty communicating verbally due to traumatic brain injury. 04/28 Increased respiratory rate and accessory muscle use, sounds like the patient has stridor. CT neck ordered to evaluate for upper airway stricture-negative for stricture, repeat chest xray showed an interval increase in left lung infiltrates. The patient appears to have a rash on his abdomen today, switched antibiotics from Ceftriaxone and Azithromycin to Levofloxacin IV. MRSA nasal PCR negative. Procalcitonin mildly elevated. PANTHER PCR negative. No sputum sample obtained yet. Ordered Respiratory panel 1&2. Continues to have diffuse wheezing-started Solumedrol and continued bronchodilators. Concern for possible aspiration-made the patient NPO pending speech evaluation. Started chest physiotherapy and suctioning. ABG showed pH 7.41, pCO2 43, pO2 60 on 5L/min nasal canula oxygen. 04/29 Respiratory panel positive for human metapneumovirus, suspect this is the a contributing cause of the patient's respiratory illness. Continue empiric levofloxacin for 5 days. On 8 L/min nasal cannula oxygen however appears to be breathing more comfortably today. 04/30: Afebrile overnight. Still on 8L/min oxygen. Sputum cultures no growth to date. Denies any pain of his right flank. Denies SOB. Denies cough or wheezing. Denies chest pain. Denies fever, chills, or sweating. d/c Acyclovir. Continue IV Levaquin. On Level 5 dysphagia diet. MBSS today. Constitutional Vitals: Vital Signs Temp Pulse Resp BP Pulse Ox 36.5 C 88 25 H 135/76 94 04/30/21 08:01 04/30/21 09:05 04/30/21 09:05 04/30/21 08:01 04/30/21 09:05 Period Temp Pulse Resp BP Sys/Joyce Pulse Ox Last 24 Hr 36.2 C-37.2 C 52-97 21-34 108-143/61-99 81-100 Intake and Output 04/29/21 04/30/21 04/30/21 21:59 05:59 13:59 Intake Total 404.5455 Output Total 395 121 Balance 9.5455 -121 Weight 92.714 kg Intake & Output: Intake & Output 04/29/21 04/30/21 04/30/21 21:59 05:59 13:59 Intake Total 404.5455 Output Total 395 121 Balance 9.5455 -121 Weight 92.714 kg Intake: IV 404.5455 Potassium Phosphate 20 Meq In 254.5455 Dextrose 5% in Water 250 ml @ 127.273 mls/hr IV ONCE ONE Rx#: [id number] Output: Void Amount 395 120 # of times incontinent of urine 1 Other: Urine Appearance Clear Clear Urine Color Straw Straw Urine Odor Normal Stool Size Large Stool Color Brown Stool Consistency Formed # Bowel Movements 1 General appearance: disheveled Exam: on wheelchair, tremors Head Head exam: Present atraumatic and normal inspection Eye Eye exam: Present normal appearance ENT ENT exam: Present mucous membranes moist, normal exam and normal external ear exam Additional comments: Nasal cannula in place Neck Neck exam: Present normal inspection Respiratory Respiratory exam: Present decreased breath sounds Cardiovascular Cardiovascular exam: Present normal rate and rhythm GI/Abdominal GI/Abdominal exam: Present normal bowel sounds Back Exam Back exam: Present normal inspection Neurological Exam Neurological exam: Present alert and oriented X3 Additional comments: paralyzed, sitting on wheelchair, tremors Skin Skin exam: Present intact, rash and warm OBJ DATA Labs CBC & Chem 7: 04/30/21 05:54 04/30/21 05:54 Labs: Abnormal Lab Results 04/30/21 04/30/21 04/29/21 05:54 05:54 12:13 RBC 4.19 L Hgb 12.6 L Hct 38.4 L MPV Neut % (Auto) 92.2 H Lymph % (Auto) 5.4 L Lymph # (Auto) 0.57 L Absolute Neutrophils 9.69 H Glucose 148 H 156 H Calcium 8.1 L 8.2 L Phosphorus 1.6 L Lactate Dehydrogenase Albumin 3.1 L Procalcitonin 04/29/21 04/28/21 04/28/21 05:53 05:25 05:25 RBC 4.44 L Hgb 13.6 L Hct MPV 10.7 H Neut % (Auto) 89.4 H Lymph % (Auto) 8.2 L Lymph # (Auto) 0.47 L Absolute Neutrophils Glucose Calcium 7.7 L Phosphorus Lactate Dehydrogenase 250 H Albumin 3.1 L Procalcitonin 0.14 H 04/28/21 04/27/21 05:25 09:22 RBC 4.35 L Hgb 13.2 L Hct MPV 10.6 H Neut % (Auto) Lymph % (Auto) Lymph # (Auto) Absolute Neutrophils Glucose 112 H Calcium 7.9 L Phosphorus 2.3 L Lactate Dehydrogenase Albumin Procalcitonin Meds: Medications Acetaminophen (Acetaminophen 325 Mg Tablet) 650 mg PO Q6HP PRN; Protocol PRN Reason: Per Pain Protocol/Fever > 101 Acetylcysteine (Acetylcysteine 800 Mg/4 Ml Vial) 600 mg NEB Q6 [facility] Last Admin: 04/30/21 05:41 Dose: 600 mg Documented by: Albuterol Sulfate (Albuterol Sulfate 2.5 Mg/3 Ml Nebulizer) 2.5 mg NEB Q2HP PRN PRN Reason: Shortness Of Breath Last Admin: 04/27/21 22:25 Dose: 2.5 mg Documented by: Albuterol/Ipratropium (Ipratropium/Albuterol 3 Ml Ampul.Neb) 3 ml NEB Q6HRT [facility] Last Admin: 04/30/21 05:41 Dose: 3 ml Documented by: Benzonatate (Benzonatate 100 Mg Capsule) 200 mg PO TIDP PRN PRN Reason: Cough Last Admin: 04/28/21 16:09 Dose: 200 mg Documented by: Docusate Sodium (Docusate Sodium 100 Mg Capsule) 100 mg PO BID [facility] Last Admin: 04/30/21 09:06 Dose: 100 mg Documented by: Enoxaparin Sodium (Enoxaparin 40 Mg/0.4 Ml Syringe) 40 mg SQ DAILY [facility] Last Admin: 04/30/21 09:06 Dose: 40 mg Documented by: Epinephrine (Racepinephrine 0.5 Ml Ampul.Neb) 0.5 ml NEB Q6HP PRN PRN Reason: stridor Last Admin: 04/27/21 19:39 Dose: 0.5 ml Documented by: Levofloxacin (Levaquin) 750 mg in 150 mls @ 100 mls/hr IV Q24H [facility] Stop: 05/03/21 10:59 Last Infusion: 04/29/21 15:55 Dose: Infused Documented by: Lactulose (Lactulose 20 Gm/30 Ml Oral.Nilam) 10 gm PO DAILYP PRN PRN Reason: Constipation Methylprednisolone Sodium Succinate (Methylprednisolone Sod Succ 40 Mg/Ml Vial) 40 mg IV Q12 [facility] Last Admin: 04/30/21 09:05 Dose: 40 mg Documented by: Ondansetron HCl (Ondansetron 4 Mg/2 Ml Vial) 4 mg IV Q4HP PRN; Protocol PRN Reason: Nausea And Vomiting Senna (Sennosides 1 Tablet) 2 tab PO HSP PRN PRN Reason: Constipation Sodium Chloride (0.9 % Sodium Chloride 10 Ml Syringe) 10 ml IV Q8 [facility] Last Admin: 04/30/21 05:41 Dose: 10 ml Documented by: Tamsulosin HCl (Tamsulosin 0.4 Mg Capsule) 0.4 mg PO HS [facility] Last Admin: 04/29/21 19:55 Dose: 0.4 mg Documented by: A/P Assessment and plan (1) Viral pneumonia: Status: Acute (2) CAP (community acquired pneumonia): Status: Acute (3) Acute respiratory failure with hypoxia: Status: Acute (4) Dysphagia: Status: Acute Narrative A/P Narrative: Assessment and Plans: 1. Acute respiratory failure with hypoxia: DDx: viral pneumonia, community acquired pneumonia Inpatient PCU Positive for human metapneumovirus Sputum cultures no growth to date Supplemental oxygen therapy titrate to achieve spo2>=92%, currently on 8L/min IV Levaquin Solu-Medrol DuoNEB NEB Mucomyst [place]al[place] Physical therapy 2. Dysphagia: Level 5 diet MBSS today GI ppx: not currently indicated DVT ppx: Lovenox Code status: Full Prognosis: guarded Disposition: inpatient PCU Time Spent With Patient Time: Total time spent is greater than 50% in coordination of care (as documented) at patient's floor/unit and/or counseling patient: Total time spent with greater than 50% in coordination of care (as documented) at patient's floor/unit and/or counseling patient:: Greater than 35 minutes QUALITY VTE Deep Vein Thrombosis/Pulmonary Embolism Present on Admission: No
[2021-04-30] MEDS: LEVOFLOXACIN 750 MG/150 ML BAG IV SCH (09:59)
[2021-04-30] MEDS ORDERED: FLU VACC QS2021-22(6MOS UP)/PF 60 MCG/0.5 ML SYRINGE IM ONE (10:00)
--- NOTE | 2021-04-30 14:49 | XRay Report ---
CLINICAL INFORMATION: Evaluate for aspiration. TECHNIQUE: Thin and thicker quality barium also solids were administered by speech pathology while fluoroscopic monitoring of deglutition was observed. Total fluoroscopy time: 20 seconds. FINDINGS: Tongue elevation and palate depression are normal resulting in propulsion of the barium bolus into the pharynx. The nasopharyngeus closes normally. Pharyngeal stripping, cricopharyngeal opening and primary peristaltic wave initiation were unremarkable.. The epiglottis and vocal cords close normally - no evidence of descending aspiration. IMPRESSION: Negative exam Interpreted and Authenticated by: Mars Hawkins 04/30/21
[2021-04-30] MEDS: TAMSULOSIN 0.4 MG CAPSULE PO SCH (20:48)
[2021-04-30] MEDS: BENZONATATE 100 MG CAPSULE PO PRN (20:48)
[2021-05-01] MEDS: IPRATROPIUM/ALBUTEROL 3 ML AMPUL.NEB NEB SCH ×2 (00:17→07:53)
[2021-05-01] MEDS: ACETYLCYSTEINE 800 MG/4 ML VIAL NEB SCH ×2 (00:17→07:53)
[2021-05-01] MEDS: 0.9 % SODIUM CHLORIDE 10 ML SYRINGE IV SCH (06:40)
[2021-05-01 06:44] LABS: Basophils # (Auto) 0.02 K/mcL (0.00-0.30); Basophils % (Auto) 0.2 % (0.0-2.0); Eosinophils # (Auto) 0 K/mcL (0.00-0.70); Eosinophils % (Auto) 0 % (0.0-7.0); Hematocrit 40.9 % (40.1-51.0); Lymphocytes # (Auto) 0.73 K/mcL (1.50-4.80); Lymphocytes % (Auto) 6.6 % (15.5-49.0); Mean Cell Volume 96.2 fL (80.0-100.0); Mean Corpuscular HGB Conc 31.8 g/dL (31.0-36.0); Mean Platelet Volume 10.1 fL (7.4-10.4); Monocytes # (Auto) 0.43 K/mcL (0.10-0.90); Monocytes % (Auto) 3.9 % (1.0-12.0); Neutrophils % (Auto) 89.3 % (38.0-78.0); Platelet Count 220 K/mcL (140-440); RBC 4.25 M/mcL (4.63-6.08); Red Cell Distribution Width 12.7 % (11.5-14.5); WBC 11.1 K/mcL (4.5-11.0)
[2021-05-01 07:13] LABS: ALT/SGPT 17 U/L (<40); AST/SGOT 20 U/L (<40); Albumin 3.3 gm/dL (3.2-5.2); Albumin/Globulin Ratio 1.1 (1.0-2.3); Alkaline Phosphatase 49 U/L (39-117); Bilirubin,Total 0.2 mg/dL (0.1-1.0); Blood Urea Nitrogen 20 mg/dL (8-23); Calcium 8.3 mg/dL (8.6-10.4); Carbon Dioxide 25 mmol/L (22-30); Chloride 105 mmol/L (96-108); Glomerular Filtration Rate 90; Glucose 143 mg/dL (70-105)
[2021-05-01] MEDS: ENOXAPARIN 40 MG/0.4 ML SYRINGE SQ SCH (09:28)
[2021-05-01] MEDS: DOCUSATE SODIUM 100 MG CAPSULE PO SCH (09:28)
[2021-05-01] MEDS: methylPREDNISolone SOD SUCC 40 MG/ML VIAL IV SCH (09:33)
--- NOTE | 2021-05-01 10:50 | Discharge Summary ---
Discharge Provider Provider Patient information: Note initiated : 05/01/21 at 10:46 am Service Date, if different from initiated Date: [] Patient: Alden Alcantar 65 y/o M admitted on 04/26/21 for cold symptoms. Chief Complaint: [] Date of admission: 04/26/21 19:35 Discharge date: 05/01/21 Primary care physician: Maida Whiting Attending physician on admission: Garrett Reynoso Consults: 04/26/21 Consult to Physician [CONS] Stat Comment: Consulting Provider: Garrett Reynoso Reason For Exam: Physician to Consult Attending physician on discharge: Chi Qi Pui Discharge Meds Discharge Medications Home Medications tamsulosin 0.4 mg capsule 1 cap PO QDAY 04/26/21 [History Confirmed 04/26/21 Last Taken Unknown] albuterol sulfate 90 mcg/actuation aerosol inhaler 2 puff INHALATION Q6H PRN 14 Days #6.7 g 05/01/21 [Rx Last Taken Unknown] benzonatate 100 mg capsule 200 mg PO TIDP PRN #20 cap 05/01/21 [Rx Last Taken Unknown] COURSE Hospital Course Hospital course: Mr. Alcantar is a 65 year old male with a history of traumatic brain injury who requires 24-hour caregiver support, prior left lung resection, probable BPH who presented to the emergency department for shortness of breath, wheezing and a cough. In the ED, the patient had a new oxygen requirement and was tachycardic. CBC did not show a leukocytosis, chemistry panel was fairly unremarkable, procalcitonin level was .10. Chest x-ray showed a left basilar parenchymal density that could be pneumonia versus volume loss. There was a markedly elevated left hemidiaphragm which was a chronic finding. The patient had a CTA chest that showed right lower lobe and probable left lower lobe opacities consistent with pneumonia. The CT scan showed an incidental finding of left hydronephrosis. There was no evidence of pulmonary embolism or other parenchymal abnormalities on the CT scan. Aretha combo rapid antigen was neg ative for SARS-CoV-2, influenza a and B. Patient was accompanied by a caregiver who stated that the patient's CODE STATUS is full code. The patient is unable to provide a clear history due to difficulty communicating verbally due to traumatic brain injury. 04/28 Increased respiratory rate and accessory muscle use, sounds like the patient has stridor. CT neck ordered to evaluate for upper airway stricture-negative for stricture, repeat chest xray showed an interval increase in left lung infiltrates. The patient appears to have a rash on his abdomen today, switched antibiotics from Ceftriaxone and Azithromycin to Levofloxacin IV. MRSA nasal PCR negative. Procalcitonin mildly elevated. PANTHER PCR negative. No sputum sample obtained yet. Ordered Respiratory panel 1&2. Continues to have diffuse wheezing- started Solumedrol and continued bronchodilators. Concern for possible aspiration-made the patient NPO pending speech evaluation. Started chest physiotherapy and suctioning. ABG showed pH 7.41, pCO2 43, pO2 60 on 5L/min nasal canula oxygen. 04/29 Respiratory panel positive for human metapneumovirus, suspect this is the a contributing cause of the patient's respiratory illness. Continue empiric levofloxacin for 5 days. On 8 L/min nasal cannula oxygen however appears to be breathing more comfortably today. 04/30: Afebrile overnight. Still on 8L/min oxygen. Sputum cultures no growth to date. Denies any pain of his right flank. Denies SOB. Denies cough or wheezing. Denies chest pain. Denies fever, chills, or sweating. d/c Acyclovir. Continue IV Levaquin. On Level 5 dysphagia diet. MBSS today. 05/01: Passed MBSS. Tolerated regular diet. Finished a course of IV Levaquin and Solu- Medrol. Reached clinical stability. Decided to discharge home with home health physical therapy with home oxygen 2L/min. 2 week PCP appointment made for him. Rx sent to pharmacy. All questions answered prior to patient being physically discharged. Discharge diagnosis: Acute on chronic respiratory failure with hypoxia exacerbated by viral PNA Time Spent with Patient Time attestation: Total time spent providing and/or coordinating discharge services: Time spent: Greater than 30 minutes EXAM Constitutional Vitals: Temp Pulse Resp BP Pulse Ox 36.3 C 99 H 24 H 119/65 90 05/01/21 07:46 05/01/21 07:54 05/01/21 07:54 05/01/21 07:46 05/01/21 09:15 General appearance: cooperative and no acute distress Exam: On wheelchair Head Head exam: Present atraumatic and normocephalic Eye Eye exam: Present EOMI and PERRL ENT ENT exam: Present mucous membranes moist, normal exam and normal external ear exam Additional comments: Nasal cannula in place Neck Neck exam: Present normal inspection; Absent lymphadenopathy, tenderness or thyromegaly Respiratory Respiratory exam: Present decreased breath sounds; Absent accessory muscle use, respiratory distress or wheezes Cardiovascular Cardiovascular exam: Present normal rate and rhythm; Absent JVD GI/Abdominal GI/Abdominal exam: Present normal bowel sounds and soft; Absent organomegaly or tenderness Rectal Rectal exam: Present deferred Extremities Exam Extremities exam: Present full ROM, normal capillary refill and normal inspection; Absent tenderness Neurological Exam Neurological exam: Present alert, CN II-XII intact and oriented X3; Absent motor sensory deficit Psychiatric Psychiatric exam: Present normal affect and normal mood; Absent anxious or depressed Skin Skin exam: Present dry and intact Discharge Data Data Completed and Pending Labs on day of discharge: Labs from last 24 hours 05/01/21 05/01/21 05:34 05:34 WBC 11.1 H RBC 4.25 L Hgb 13.0 L Hct 40.9 MCV 96.2 MCH 30.6 MCHC 31.8 RDW 12.7 Plt Count 220 MPV 10.1 Neut % (Auto) 89.3 H Lymph % (Auto) 6.6 L [place] % (Auto) 3.9 Eos % (Auto) 0 Baso % (Auto) 0.2 Lymph # (Auto) 0.73 L [place] # (Auto) 0.43 Eos # (Auto) 0 Baso # (Auto) 0.02 Absolute Neutrophils 9.91 H Sodium 140 Potassium 4.5 Chloride 105 Carbon Dioxide 25 Anion Gap 10.0 BUN 20 Creatinine 0.9 GFR Calculation 90 Glucose 143 H Calcium 8.3 L Total Bilirubin 0.2 AST 20 ALT 17 Alkaline Phosphatase 49 Total Protein 6.3 Albumin 3.3 Globulin 3.0 Albumin/Globulin Ratio 1.1 Discharge Plan Patient/Caregiver Discharge Instructions Activity: increase activity as tolerated Diet: Regular Diet Prescriptions: New benzonatate 100 mg Capsule 200 mg PO TIDP PRN (Reason: Cough) Qty: 20 0RF albuterol sulfate 90 mcg/actuation HFA aerosol inhaler 2 puff inhalation Q6H PRN (Reason: shortness of breath or wheezing) 14 Days Qty: 6.7 1RF Continued tamsulosin 0.4 mg capsule 1 cap PO QDAY 0RF Follow Up Plan Follow up with: PCP, PCP [Other] Maida Whiting ARNP [Primary Care Provider] - Patient Disposition: Home Health Service Prognosis: Fair Rehab Potential: Good I certify that the patient requires SNF services: No Overall status at discharge: patient is progressing back to baseline Discharge Orders: Discharge Order (Routine); Ordered 05/01/21 Ordered By: Matt STEWARD VTE Deep Vein Thrombosis/Pulmonary Embolism Present on Admission: No
[2021-05-01] MEDS: LEVOFLOXACIN 750 MG/150 ML BAG IV SCH (11:17)
--- NOTE | 2021-05-02 07:59 | EKG ---
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 Measurements Intervals [place] Rate: 94 P: 75 [place]: 121 QRS: 53 QRSD: 92 T: 104 QT: 346 QTc: 433 Interpretive Statements Sinus rhythm Abnormal ST-T, consider ischemia, lateral leads Baseline artifact Electronically Signed On 05-02-2021 7:58:49 PST by Emile Kincaid D.O. /store/[email or web address]/[id number]
== END 2021-05-01 13:25 | disposition home health service (06) | DRG 871 ==
LOC: ED 11:34 → ICU 19:35 → MEDSUR 04-27 16:03 → ICU 04-27 21:25 → MEDSUR 04-30 13:59
PROVIDERS: ADMIT Internal Medicine; ATTEND Internal Medicine

== ENCOUNTER 2024-03-03 08:22 | Inpatient (IN) ==
[2024-03-03] MEDS ORDERED: IOPAMIDOL 100 ML BOTTLE IV ONE (08:23)
[2024-03-03] MEDS: KETOROLAC 15 MG/ML VIAL IV ONE (08:42)
[2024-03-03] MEDS: LACTATED RINGERS 1,000 ML IV ONE (08:42)
[2024-03-03 09:22] LABS: Basophils # (Auto) 0.02 K/mcL (0.00-0.30); Basophils % (Auto) 0.3 % (0.0-2.0); Eosinophils # (Auto) 0.01 K/mcL (0.00-0.70); Eosinophils % (Auto) 0.1 % (0.0-7.0); Hematocrit 44.5 % (40.1-51.0); Hemoglobin 13.7 g/dL (13.7-17.5); Lymphocytes # (Auto) 0.44 K/mcL (1.50-4.80); Lymphocytes % (Auto) 6.1 % (15.5-49.0); Mean Cell Volume 98.9 fL (80.0-100.0); Mean Corpuscular HGB Conc 30.8 g/dL (31.0-36.0); Mean Platelet Volume 10.2 fL (8.8-12.5); Monocytes # (Auto) 0.86 K/mcL (0.10-0.90); Neutrophils % (Auto) 81.1 % (38.0-78.0); Platelet Count 162 K/mcL (140-440); WBC 7.2 K/mcL (4.5-11.0)
[2024-03-03 09:49] LABS: ALT/SGPT 28 U/L (<40); AST/SGOT 34 U/L (<40); Albumin 3.7 gm/dL (3.2-5.2); Albumin/Globulin Ratio 1.2 (1.0-2.3); Alkaline Phosphatase 59 U/L (39-117); Bilirubin,Total 0.3 mg/dL (0.1-1.0); Blood Urea Nitrogen 18 mg/dL (8-23); Calcium 9.5 mg/dL (8.6-10.4); Carbon Dioxide 24 mmol/L (22-30); Chloride 103 mmol/L (96-108); Globulin 3.1 gm/dL (2.2-3.7); Glomerular Filtration Rate 52; Glucose 123 mg/dL (70-105); Potassium 4.2 mmol/L (3.3-5.1); Sodium 141 mmol/L (133-145)
[2024-03-03] MEDS: 0.9 % SODIUM CHLORIDE 1,000 ML IV ONE (10:21)
[2024-03-03] MEDS: OSELTAMIVIR PHOSPHATE 75 MG CAPSULE PO ONE (11:59)
[2024-03-03] MEDS: ACETAMINOPHEN 325 MG TABLET PO ONE (12:57)
[2024-03-03] MEDS ORDERED: oxyCODONE IR 5 MG TABLET PO PRN (15:12)
[2024-03-03] MEDS ORDERED: MAG HYDROX/AL HYDROX/SIMETH 30 ML ORAL.SUSP PO PRN (15:12)
[2024-03-03] MEDS ORDERED: ONDANSETRON 4 MG/2 ML VIAL IV PRN (15:12)
[2024-03-03] MEDS ORDERED: CALCIUM CARBONATE 500 MG TAB.CHEW CHEWED PRN (15:12)
[2024-03-03] MEDS ORDERED: MAGNESIUM HYDROXIDE 30 ML ORAL.SUSP PO PRN (15:12)
[2024-03-03] MEDS ORDERED: IBUPROFEN 600 MG TABLET PO PRN (15:12)
[2024-03-03] MEDS: 0.9 % SODIUM CHLORIDE 1,000 ML IV SCH (15:16)
[2024-03-03] MEDS: ALBUTEROL SULFATE 2.5 MG/3 ML NEBULIZER NEB PRN (15:37)
[2024-03-03] MEDS: guaiFENesin/CODEINE 10 ML UDC PO PRN (17:06)
[2024-03-03] MEDS: BENZONATATE 100 MG CAPSULE PO PRN (17:06)
[2024-03-03] MEDS: ACETAMINOPHEN 325 MG TABLET PO PRN (21:27)
[2024-03-03] MEDS: OSELTAMIVIR PHOSPHATE 30 MG CAPSULE PO SCH (21:28)
[2024-03-03] MEDS: MELATONIN 3 MG TABLET PO SCH (21:28)
[2024-03-03] MEDS: 0.9 % SODIUM CHLORIDE 10 ML SYRINGE IV SCH (21:28)
[2024-03-03] MEDS: TAMSULOSIN 0.4 MG CAPSULE PO SCH (21:28)
[2024-03-04 06:31] LABS: Basophils # (Auto) 0.01 K/mcL (0.00-0.30); Basophils % (Auto) 0.1 % (0.0-2.0); Eosinophils # (Auto) 0.01 K/mcL (0.00-0.70); Eosinophils % (Auto) 0.1 % (0.0-7.0); Hematocrit 41.4 % (40.1-51.0); Hemoglobin 12.7 g/dL (13.7-17.5); Lymphocytes # (Auto) 0.72 K/mcL (1.50-4.80); Lymphocytes % (Auto) 9.9 % (15.5-49.0); Mean Cell Volume 100.2 fL (80.0-100.0); Mean Corpuscular HGB Conc 30.7 g/dL (31.0-36.0); Mean Platelet Volume 10.5 fL (8.8-12.5); Monocytes # (Auto) 0.61 K/mcL (0.10-0.90); Monocytes % (Auto) 8.4 % (1.0-12.0); Neutrophils % (Auto) 81.2 % (38.0-78.0); Platelet Count 128 K/mcL (140-440); RBC 4.13 M/mcL (4.63-6.08); Red Cell Distribution Width 13.2 % (11.5-14.5); WBC 7.3 K/mcL (4.5-11.0)
[2024-03-04 06:45] LABS: Blood Urea Nitrogen 15 mg/dL (8-23); Calcium 9.1 mg/dL (8.6-10.4); Carbon Dioxide 26 mmol/L (22-30); Chloride 101 mmol/L (96-108); Glomerular Filtration Rate 92; Glucose 101 mg/dL (70-105); Potassium 4.3 mmol/L (3.3-5.1); Sodium 138 mmol/L (133-145)
[2024-03-04] MEDS: DOCUSATE SODIUM 100 MG CAPSULE PO PRN (08:37)
[2024-03-04] MEDS: ENOXAPARIN 40 MG/0.4 ML SYRINGE SQ SCH (08:37)
[2024-03-04] MEDS: SENNOSIDES 1 TABLET PO PRN (20:57)
[2024-03-04] MEDS: LORazepam 0.5 MG TABLET PO PRN (20:57)
[2024-03-07 10:17] VITALS: O2SAT 90
[2024-03-07 13:09] VITALS: TEMP 97.3
== END 2024-03-07 13:23 | disposition home or self-care (01) | DRG 189 ==
LOC: ED 08:22 → ICU 15:02
PROVIDERS: ADMIT Internal Medicine; ATTEND Internal Medicine

== ENCOUNTER 2024-03-07 18:09 | Inpatient (IN) ==
[2024-03-07] MEDS: IPRATROPIUM/ALBUTEROL 3 ML AMPUL.NEB NEB ONE (18:45)
[2024-03-07 19:14] LABS: Basophils # (Auto) 0.01 K/mcL (0.00-0.30); Basophils % (Auto) 0.3 % (0.0-2.0); Eosinophils # (Auto) 0.05 K/mcL (0.00-0.70); Eosinophils % (Auto) 1.5 % (0.0-7.0); Hematocrit 44.7 % (40.1-51.0); Hemoglobin 14.2 g/dL (13.7-17.5); Lymphocytes # (Auto) 1.13 K/mcL (1.50-4.80); Lymphocytes % (Auto) 34.6 % (15.5-49.0); Mean Cell Volume 94.9 fL (80.0-100.0); Mean Corpuscular HGB Conc 31.8 g/dL (31.0-36.0); Mean Platelet Volume 10.4 fL (8.8-12.5); Monocytes # (Auto) 0.45 K/mcL (0.10-0.90); Monocytes % (Auto) 13.8 % (1.0-12.0); Neutrophils % (Auto) 49.5 % (38.0-78.0); Platelet Count 173 K/mcL (140-440); RBC 4.71 M/mcL (4.63-6.08); Red Cell Distribution Width 12.7 % (11.5-14.5); WBC 3.3 K/mcL (4.5-11.0)
[2024-03-07 19:26] LABS: ALT/SGPT 226 U/L (<40); AST/SGOT 311 U/L (<40); Albumin 3.6 gm/dL (3.2-5.2); Albumin/Globulin Ratio 1.2 (1.0-2.3); Alkaline Phosphatase 79 U/L (39-117); Bilirubin,Total 0.5 mg/dL (0.1-1.0); Blood Urea Nitrogen 10 mg/dL (8-23); Calcium 8.5 mg/dL (8.6-10.4); Carbon Dioxide 25 mmol/L (22-30); Chloride 102 mmol/L (96-108); Globulin 3.1 gm/dL (2.2-3.7); Glomerular Filtration Rate 92; Glucose 106 mg/dL (70-105); Sodium 137 mmol/L (133-145)
[2024-03-07] MEDS ORDERED: ONDANSETRON 4 MG/2 ML VIAL IV PRN (20:47)
[2024-03-07] MEDS ORDERED: traZODone HCL 50 MG TABLET PO PRN (20:47)
[2024-03-07] MEDS: SENNOSIDES 1 TABLET PO SCH (21:27)
[2024-03-07] MEDS: DOCUSATE SODIUM 100 MG CAPSULE PO SCH (21:27)
[2024-03-07] MEDS: 0.9 % SODIUM CHLORIDE 10 ML SYRINGE IV SCH (21:31)
[2024-03-08] MEDS: ENOXAPARIN 40 MG/0.4 ML SYRINGE SQ SCH (08:09)
[2024-03-08] MEDS: IPRATROPIUM/ALBUTEROL 3 ML AMPUL.NEB NEB PRN (08:42)
[2024-03-08] MEDS: guaiFENesin 600 MG TAB.SR.12H PO SCH (10:56)
[2024-03-09] MEDS: ACETAMINOPHEN 325 MG TABLET PO PRN (10:10)
[2024-03-10 14:39] VITALS: TEMP 98.8; O2SAT 95
== END 2024-03-10 13:00 | disposition home or self-care (01) | DRG 189 ==
LOC: ED 18:09 → MEDSUR 18:09
PROVIDERS: ADMIT Internal Medicine; ATTEND Internal Medicine

== ENCOUNTER 2025-02-25 13:38 | Inpatient (IN) ==
[2025-02-25] MEDS ORDERED: IOPAMIDOL 100 ML BOTTLE IV ONE (13:39)
[2025-02-25] MEDS: 0.9 % SODIUM CHLORIDE 1,000 ML IV ONE (13:54)
[2025-02-25] MEDS: IPRATROPIUM/ALBUTEROL 3 ML AMPUL.NEB NEB ONE (14:03)
[2025-02-25 14:25] LABS: Basophils # (Auto) 0.03 K/mcL (0.00-0.30); Basophils % (Auto) 0.3 % (0.0-2.0); Eosinophils # (Auto) 0.13 K/mcL (0.00-0.70); Eosinophils % (Auto) 1.4 % (0.0-7.0); Hematocrit 44.7 % (40.1-51.0); Hemoglobin 14.3 g/dL (13.7-17.5); Lymphocytes # (Auto) 1.50 K/mcL (1.50-4.80); Lymphocytes % (Auto) 15.9 % (15.5-49.0); Mean Corpuscular HGB Conc 32.0 g/dL (31.0-36.0); Monocytes # (Auto) 1.23 K/mcL (0.10-0.90); Monocytes % (Auto) 13.0 % (1.0-12.0); Neutrophils % (Auto) 69.2 % (38.0-78.0); Platelet Count 124 K/mcL (140-440); RBC 4.63 M/mcL (4.63-6.08); WBC 9.4 K/mcL (4.5-11.0)
[2025-02-25 14:32] LABS: INR 1.0 (0.9-1.1); Prothrombin Time 14.2 sec (11.9-14.5)
[2025-02-25] MEDS: LEVOFLOXACIN 750 MG/150 ML BAG IV ONE (14:33)
[2025-02-25 14:48] LABS: ALT/SGPT 8 U/L (<40); AST/SGOT 15 U/L (<40); Albumin 3.5 gm/dL (3.2-5.2); Albumin/Globulin Ratio 1.3 (1.0-2.3); Alkaline Phosphatase 58 U/L (39-117); Anion Gap 11.0 (8.0-16.0); Bilirubin,Total 0.4 mg/dL (0.1-1.0); Blood Urea Nitrogen 17 mg/dL (8-23); Calcium 8.8 mg/dL (8.6-10.4); Carbon Dioxide 26 mmol/L (22-30); Chloride 103 mmol/L (96-108); Globulin 2.8 gm/dL (2.2-3.7); Glucose 115 mg/dL (70-105); Potassium 4.2 mmol/L (3.3-5.1); Sodium 140 mmol/L (133-145)
[2025-02-25 16:35] LABS: Bacteria,Urine Mod /hpf (0); Bilirubin,Urine NEGATIVE (Negative); Color,Urine LT. YELLOW; Glucose,Urine (UA) NEGATIVE (Negative); Ketones,Urine TRACE mg/dL (Negative); Leukocyte Esterase,Urine NEGATIVE /uL (Negative); Mucus,Urine Few /hpf; PH,Urine 6.0 (5.0-9.0); Protein,Urine NEGATIVE (Negative); Specific Gravity,Urine 1.025 (1.000-1.035); Urobilinogen,Urine 0.2 mg/dL
[2025-02-25] MEDS ORDERED: POLYETHYLENE GLYCOL 3350 17 GM PACKET PO PRN (19:23)
[2025-02-25] MEDS ORDERED: ONDANSETRON 4 MG/2 ML VIAL IV PRN (19:23)
[2025-02-25] MEDS ORDERED: ACETAMINOPHEN 1,000 MG/100 ML BAG IV PRN (19:23)
[2025-02-25] MEDS ORDERED: IPRATROPIUM/ALBUTEROL 3 ML AMPUL.NEB NEB PRN (19:23)
[2025-02-25] MEDS: LACTATED RINGERS 1,000 ML IV SCH (19:36)
[2025-02-25] MEDS: 0.9 % SODIUM CHLORIDE 10 ML SYRINGE IV SCH (19:39)
[2025-02-25] MEDS: IPRATROPIUM/ALBUTEROL 3 ML AMPUL.NEB NEB SCH (20:07)
[2025-02-25] MEDS: DOCUSATE SODIUM 100 MG CAPSULE PO SCH (22:35)
[2025-02-25] MEDS: SENNOSIDES 1 TABLET PO SCH (22:35)
[2025-02-26 07:10] LABS: ALT/SGPT 8 U/L (<40); AST/SGOT 17 U/L (<40); Albumin 3.5 gm/dL (3.2-5.2); Albumin/Globulin Ratio 1.3 (1.0-2.3); Alkaline Phosphatase 52 U/L (39-117); Anion Gap 12.0 (8.0-16.0); Bilirubin,Direct < 0.2 mg/dL (0-0.3); Bilirubin,Total 0.2 mg/dL (0.1-1.0); Blood Urea Nitrogen 18 mg/dL (8-23); Calcium 8.6 mg/dL (8.6-10.4); Carbon Dioxide 24 mmol/L (22-30); Chloride 104 mmol/L (96-108); Globulin 2.7 gm/dL (2.2-3.7); Glucose 126 mg/dL (70-105); Phosphorous 2.9 mg/dL (2.5-4.5); Potassium 4.3 mmol/L (3.3-5.1); Sodium 140 mmol/L (133-145); Triglycerides 43 mg/dL (<150); Uric Acid 3.8 mg/dL (2.5-8.0)
[2025-02-26] MEDS: PANTOPRAZOLE 40 MG TABLET PO SCH (07:10)
[2025-02-26 07:17] LABS: Basophils # (Auto) 0.01 K/mcL (0.00-0.30); Basophils % (Auto) 0.1 % (0.0-2.0); Eosinophils # (Auto) 0 K/mcL (0.00-0.70); Eosinophils % (Auto) 0 % (0.0-7.0); Hematocrit 39.6 % (40.1-51.0); Hemoglobin 12.9 g/dL (13.7-17.5); Lymphocytes # (Auto) 0.64 K/mcL (1.50-4.80); Lymphocytes % (Auto) 5.6 % (15.5-49.0); Mean Corpuscular HGB Conc 32.6 g/dL (31.0-36.0); Monocytes # (Auto) 0.76 K/mcL (0.10-0.90); Monocytes % (Auto) 6.7 % (1.0-12.0); Neutrophils % (Auto) 87.3 % (38.0-78.0); Platelet Count 183 K/mcL (140-440); RBC 4.08 M/mcL (4.63-6.08); WBC 11.3 K/mcL (4.5-11.0)
[2025-02-26] MEDS: ENOXAPARIN 40 MG/0.4 ML SYRINGE SQ SCH (08:47)
[2025-02-26] MEDS: LEVOFLOXACIN 750 MG/150 ML BAG IV SCH (11:28)
[2025-02-27 06:56] LABS: ALT/SGPT 10 U/L (<40); AST/SGOT 23 U/L (<40); Albumin 3.5 gm/dL (3.2-5.2); Albumin/Globulin Ratio 1.4 (1.0-2.3); Alkaline Phosphatase 49 U/L (39-117); Anion Gap 13.0 (8.0-16.0); Bilirubin,Direct < 0.2 mg/dL (0-0.3); Bilirubin,Total 0.3 mg/dL (0.1-1.0); Blood Urea Nitrogen 22 mg/dL (8-23); Calcium 8.5 mg/dL (8.6-10.4); Carbon Dioxide 23 mmol/L (22-30); Chloride 106 mmol/L (96-108); Globulin 2.5 gm/dL (2.2-3.7); Glucose 95 mg/dL (70-105); Phosphorous 2.7 mg/dL (2.5-4.5); Potassium 4.0 mmol/L (3.3-5.1); Sodium 142 mmol/L (133-145); Triglycerides 59 mg/dL (<150); Uric Acid 3.6 mg/dL (2.5-8.0)
[2025-02-27 07:17] LABS: Basophils # (Auto) 0.01 K/mcL (0.00-0.30); Basophils % (Auto) 0.1 % (0.0-2.0); Eosinophils # (Auto) 0.04 K/mcL (0.00-0.70); Eosinophils % (Auto) 0.3 % (0.0-7.0); Hematocrit 40.6 % (40.1-51.0); Hemoglobin 12.9 g/dL (13.7-17.5); Lymphocytes # (Auto) 1.54 K/mcL (1.50-4.80); Lymphocytes % (Auto) 11.1 % (15.5-49.0); Mean Corpuscular HGB Conc 31.8 g/dL (31.0-36.0); Monocytes # (Auto) 0.99 K/mcL (0.10-0.90); Monocytes % (Auto) 7.1 % (1.0-12.0); Neutrophils % (Auto) 81.2 % (38.0-78.0); Platelet Count 182 K/mcL (140-440); RBC 4.12 M/mcL (4.63-6.08); WBC 13.9 K/mcL (4.5-11.0)
[2025-02-27] MEDS ORDERED: guaiFENesin 600 MG TAB.SR.12H PO PRN (12:52)
[2025-02-27] MEDS: IPRATROPIUM/ALBUTEROL 3 ML AMPUL.NEB NEB SCH (14:28)
[2025-02-27] MEDS: TAMSULOSIN 0.4 MG CAPSULE PO SCH (23:09)
[2025-02-28 07:13] LABS: ALT/SGPT 11 U/L (<40); AST/SGOT 16 U/L (<40); Albumin 3.4 gm/dL (3.2-5.2); Albumin/Globulin Ratio 1.3 (1.0-2.3); Alkaline Phosphatase 46 U/L (39-117); Anion Gap 9.0 (8.0-16.0); Bilirubin,Direct < 0.2 mg/dL (0-0.3); Bilirubin,Total 0.3 mg/dL (0.1-1.0); Blood Urea Nitrogen 23 mg/dL (8-23); Calcium 8.5 mg/dL (8.6-10.4); Carbon Dioxide 26 mmol/L (22-30); Chloride 108 mmol/L (96-108); Globulin 2.6 gm/dL (2.2-3.7); Glucose 98 mg/dL (70-105); Phosphorous 2.8 mg/dL (2.5-4.5); Potassium 4.1 mmol/L (3.3-5.1); Sodium 143 mmol/L (133-145); Triglycerides 57 mg/dL (<150); Uric Acid 3.8 mg/dL (2.5-8.0)
[2025-02-28 07:15] LABS: Basophils # (Auto) 0.01 K/mcL (0.00-0.30); Basophils % (Auto) 0.1 % (0.0-2.0); Eosinophils # (Auto) 0.05 K/mcL (0.00-0.70); Eosinophils % (Auto) 0.6 % (0.0-7.0); Hematocrit 39.5 % (40.1-51.0); Hemoglobin 12.5 g/dL (13.7-17.5); Lymphocytes # (Auto) 1.40 K/mcL (1.50-4.80); Lymphocytes % (Auto) 17.7 % (15.5-49.0); Mean Corpuscular HGB Conc 31.6 g/dL (31.0-36.0); Monocytes # (Auto) 0.80 K/mcL (0.10-0.90); Monocytes % (Auto) 10.1 % (1.0-12.0); Neutrophils % (Auto) 71.0 % (38.0-78.0); Platelet Count 165 K/mcL (140-440); RBC 4.05 M/mcL (4.63-6.08); WBC 7.9 K/mcL (4.5-11.0)
[2025-03-01] MEDS: BENZONATATE 100 MG CAPSULE PO PRN (08:51)
[2025-03-01] MEDS: FUROSEMIDE 100 MG/10 ML VIAL IV ONE (08:51)
[2025-03-01 12:01] VITALS: TEMP 97.2
[2025-03-01 12:27] VITALS: O2SAT 93
== END 2025-03-01 13:28 | DRG 193 ==
LOC: ED 13:38 → MEDSUR 19:15
PROVIDERS: ADMIT Student in an Organized Health Care Education/Training Program; ATTEND Internal Medicine